=== PATIENT | male | born 1985 | race Caucasian/White ===

== ENCOUNTER 2017-03-08 20:26 | Emergency (ER) | payer MEDICAID ==
[~2017-03-08] VITALS: Ht 182.9 cm; Wt 90.7 kg
--- NOTE | 2017-03-08 20:39 | NUR ---
Pt biba from home for increased sz. Per mother pt has a sz disorder and usually has a few a day but prior to calling 911 pt had several back to back. Pt mentally delayed, nonverbal. Pt at baseline per mother. Resp even and unlabored. No obvious sign of distress at this time. Dr. Francis at bedside. Awaiting further orders.
[2017-03-08 20:49] LABS: BASOPHILS # (AUTO) 0.1 K/uL (0.0-8.0); BASOPHILS % (AUTO) 1.2 % (0.0-2.0); EOSINOPHILS # (AUTO) 0.1 K/uL (0.0-0.7); EOSINOPHILS % (AUTO) 1.3 % (0.0-7.0); HEMATOCRIT 36.8 % (40-50); HEMOGLOBIN 12.6 G/DL (14.0-18.0); LYMPHOCYTES # (AUTO) 2.4 K/UL (0.8-4.8); LYMPHOCYTES % (AUTO) 46.2 % (20.5-51.5); MEAN CORPUSCULAR HEMOGLOBIN 31.2 UUG (27.0-31.0); MEAN CORPUSCULAR HGB CONC 34 g/dL (32.0-37.0); MONOCYTES # (AUTO) 0.5 K/UL (0.1-1.30); MONOCYTES % (AUTO) 8.6 % (0.0-11.0); NEUTROPHILS # (AUTO) 2.4 K/UL (1.8-8.9); NEUTROPHILS % (AUTO) 42.7 % (38.5-71.5); PLATELET COUNT (AUTO) 189 K/UL (150-450); RED BLOOD CELL COUNT(AUTO) 4.04 MIL/UL (4.7-6.1); WHITE BLOOD COUNT (AUTO) 5.5 K/UL (4.0-11.2)
[2017-03-08 20:56] LABS: CARBON DIOXIDE 29 mmol/L (21-32); CHLORIDE 105 mmol/L (98-107); CREATININE 0.6 mg/dL (0.6-1.3); GLUCOSE 118 mg/dL (74-106); POTASSIUM 3.5 mmol/L (3.5-5.1); UREA NITROGEN, BLOOD 12 mg/dL (7-18)
[2017-03-08 21:09] LABS: ALANINE AMINOTRANSFERASE 21 U/L (16-63); ALKALINE PHOSPHATASE 51 U/L (50-136); ASPARTATE AMINOTRANSFERASE 17 U/L (15-37); BILIRUBIN,DIRECT < 0.1 mg/dL (0.0-0.2); BILIRUBIN,TOTAL 0.2 mg/dL (0.2-1.0); TOTAL PROTEIN, SERUM 7.4 g/dL (6.4-8.2)
[2017-03-08] MEDS ORDERED: LAMO200T2 PO (21:11)
[2017-03-08] MEDS ORDERED: CLOB10TA PO (21:11)
[2017-03-08] MEDS ORDERED: CLON0.1T PO (21:11)
[2017-03-08] MEDS ORDERED: PERA12TA PO (21:11)
[2017-03-08] MEDS ORDERED: DIAZ10TA4 PO (21:11)
[2017-03-08] MEDS ORDERED: DIVA500T2 PO ×2 (21:11)
--- NOTE | 2017-03-08 21:28 | NUR ---
Call placed to patient's [facility] Neurologist (Dr. Warren - ), Dr. Milligan (ON-CALL) will be paged.
--- NOTE | 2017-03-08 21:37 | NUR ---
Dr. Francis speaking with [facility] neuro assistant distribution manager for pt's neurologist.
--- NOTE | 2017-03-08 21:50 | NUR ---
[facility] called, awaiting call back
--- NOTE | 2017-03-08 22:34 | NUR ---
[facility] transfer center. Awaiting acceptance and placement.
--- NOTE | 2017-03-08 22:35 | NUR ---
Pt resting in position of comfort for self. No obvious signs of distress at this time. Mother remains at bedside.
--- NOTE | 2017-03-08 23:13 | NUR ---
Report given to SANA Sandoval at [facility]. Pt to be transfered to [facility] room [id number] on . Accepting MD is Dr. Tyson. Will call back SANA Sandoval when transport is arranged.
--- NOTE | 2017-03-09 00:35 | NUR ---
ACLs at bedside. Report given, preparing to transfer pt to [facility]
== END 2017-03-09 00:46 | disposition short-term general hospital (02) ==
LOC: ER 20:26
DX: G40.909 Epilepsy, unspecified, not intractable, without status epilepticus (principal)
CPT/HCPCS: 74022; 80048; 80076; 80164; 82542; 83605; 83880; 84484; 85025; 85730; 93005; 96374; 99285; A4663; J3360; 70030-TC

== ENCOUNTER 2017-09-05 10:29 | Inpatient (IN) | payer MEDICARE, OTHER ==
[~2017-09-05] VITALS: Ht 182.9 cm; Wt 76.2 kg
[~2017-09-05 10:29] MED LIST: CLOB10TA PO; CLON0.1T PO; DIAZ10TA4 PO; DIVA500T2 PO; LAMO200T2 GT; PERA12TA PO
[2017-09-05] MEDS ORDERED: LEVE500T9 GT (10:52)
[2017-09-05] MEDS ORDERED: PANT40TA4 GT (10:52)
[2017-09-05] MEDS ORDERED: LEVO330T2 GT (10:52)
[2017-09-05] MEDS ORDERED: MELA5TAB GT (10:52)
[2017-09-05] MEDS ORDERED: TOPI100T38 GT (10:52)
[2017-09-05] MEDS ORDERED: POTA10TA15 GT (10:52)
[2017-09-05] MEDS ORDERED: DOCU100C36 GT (10:52)
--- NOTE | 2017-09-05 10:52 | NUR ---
EKG DONE, PT'S MOM PRESENT, RECREATION THERAPY TEACHER AT THE BEDSIDE, MONITOR SHOWS NSR, PO2=97% ON ROOMAIR
[2017-09-05 11:00] LABS: BASOPHILS # (AUTO) 0.1 K/uL (0.0-8.0); BASOPHILS % (AUTO) 0.8 % (0.0-2.0); EOSINOPHILS # (AUTO) 0.1 K/uL (0.0-0.7); EOSINOPHILS % (AUTO) 0.9 % (0.0-7.0); HEMATOCRIT 43.5 % (36.7-47.1); HEMOGLOBIN 14.8 g/dL (12.5-16.3); LYMPHOCYTES # (AUTO) 1.7 K/uL (20.0-40.0); LYMPHOCYTES % (AUTO) 28.6 % (20.5-51.5); MEAN CORPUSCULAR HEMOGLOBIN 29.3 uug (23.8-33.4); MEAN CORPUSCULAR HGB CONC 34 g/dL (32.5-36.3); MEAN CORPUSCULAR VOLUME 86.1 fL (73.0-96.2); MONOCYTES # (AUTO) 0.4 K/uL (2.0-10.0); MONOCYTES % (AUTO) 7.1 % (0.0-11.0); NEUTROPHILS # (AUTO) 3.8 K/uL (1.8-8.9); NEUTROPHILS % (AUTO) 62.6 % (38.5-71.5); PLATELET COUNT (AUTO) 270 K/uL (152-348); RED BLOOD CELL COUNT(AUTO) 5.05 MIL/uL (4.06-5.63); WHITE BLOOD COUNT (AUTO) 6.1 K/uL (3.6-10.2)
[2017-09-05] MEDS ORDERED: LORAZEPAM 2 MG/1 ML VIAL ONE ×3 (11:01→12:01)
[2017-09-05] MEDS ORDERED: LORAZEPAM 2 MG/1 ML VIAL IM ONE (11:07)
[2017-09-05 11:09] LABS: CARBON DIOXIDE 24 mmol/L (21-32); CHLORIDE 103 mmol/L (98-107); CREATININE 0.7 mg/dL (0.6-1.3); GLUCOSE 98 mg/dL (74-106); POTASSIUM 3.9 mmol/L (3.5-5.1); UREA NITROGEN, BLOOD 11 mg/dL (7-18)
[2017-09-05] MEDS ORDERED: LORAZEPAM 2 MG/1 ML VIAL IV ONE ×2 (11:13→12:15)
[2017-09-05 11:14] LABS: ALANINE AMINOTRANSFERASE 31 U/L (16-63); ALKALINE PHOSPHATASE 208 U/L (50-136); ASPARTATE AMINOTRANSFERASE 16 U/L (15-37); BILIRUBIN,TOTAL 0.3 mg/dL (0.2-1.0); CREATINE KINASE, TOTAL 46 U/L (39-308); TOTAL PROTEIN, SERUM 8.6 g/dL (6.4-8.2)
[2017-09-05] MEDS ORDERED: LEVETIRACETAM IV 500 MG in IV DEXTROSE 5% 100 ML IV ONE (11:14)
[2017-09-05] MEDS ORDERED: CLON0.3T GT (11:20)
[2017-09-05] MEDS ORDERED: MULT1TAB73 GT (11:20)
[2017-09-05] MEDS ORDERED: ZINC220C8 GT (11:20)
[2017-09-05] MEDS ORDERED: CHOL10002 GT (11:20)
[2017-09-05] MEDS ORDERED: POLY255P2 GT (11:20)
[2017-09-05] MEDS ORDERED: PHEN-563 GT (11:20)
[2017-09-05] MEDS ORDERED: ONDA4TAB5 GT (11:20)
[2017-09-05] MEDS ORDERED: ASCO500C18 GT (11:20)
[2017-09-05] MEDS ORDERED: LEVETIRACETAM 500 MG/5 ML VIAL IV ONE (11:24)
--- NOTE | 2017-09-05 11:43 | NUR ---
LABS DARWN/EKG DONE,MEDS ADMIN, MONITOR SHOWS SINUS TACH AT 103, PO2=97% ON RA. PT'S MOM AT BEDSIDE.
--- NOTE | 2017-09-05 11:55 | NUR ---
ALL ORDERS COMPLETED, PT AWAITING CT SCAN.
--- NOTE | 2017-09-05 12:05 | NUR ---
PT MOVING TO MUCH, PT REC'D ATIVAN, PER MD -HOLD OFF ON THE CT SCAN WHEN PT IS LESS ALTERED.
--- NOTE | 2017-09-05 12:27 | NUR ---
PER DR MILAN PT TO GO TO TELE, HOWEVER FOR PT'S SAFETY-PT IS BETTER AT CCU DUE TO SZ HX. PER GLORIA [id number] TO ELVIN THE NRS PAYROLL PROFESSIONAL AND AT THIS MOMENT NO CCU BEDS AVAIL AND ARE ATTEMPTING TO MOVE OR DOWNGRADE A PT OUT.
[2017-09-05 12:44] LABS: *BILIRUBIN,URIN NEGATIVE (NEGATIVE); *BLOOD, URINE 2+ (NEGATIVE); *CLARITY,URINE CLEAR (CLEAR); *COLOR,URINE YELLOW (YELLOW); *KETONES,URINE NEGATIVE (NEGATIVE); *PROTEIN,URINE NEGATIVE (NEGATIVE); *UROBILINOGEN,URINE 0.2 E.U./dl (NORMAL); LEUKOCYTE ESTERASE ,URINE NEGATIVE (NEGATIVE); NITRITE, URINE NEGATIVE (NEGATIVE); UGLUCOSE NEGATIVE (NEGATIVE)
[2017-09-05 13:02] LABS: BACTERIA,URINE NONE SEEN /HPF (NONE SEEN); RBC,URINE 0-3 /HPF (0-3); SQUAMOUS EPITHELIAL CELL,UR FEW /HPF (NONE SEEN); WBC,URINE 0-3 /HPF (0-3)
--- NOTE | 2017-09-05 13:21 | NUR ---
PER MANISH HOOD -CHARGE PT WAS TO BE JEN HOOD HOWEVER WAS IN BREAK. NOW JEN CAN NOT TAKE REPORT DUE TO CHANGE IN ASSIGNMENT. AWAITING FOR NEXT CHANCE TO TRANSFER THE PT.
[2017-09-05] MEDS ORDERED: MENT71OI TP (13:27)
[2017-09-05] MEDS ORDERED: LACT-47 GT (13:27)
[2017-09-05] MEDS ORDERED: IV NS 1000 ML 1,000 ML IV ONE (14:00)
[2017-09-05] MEDS: IV NS 1000 ML 1,000 ML IV PRN ×2 (14:35→20:06)
--- NOTE | 2017-09-05 14:43 | NUR ---
SBAR REPORT GIVEN TO JEN HOOD EARLIER BY JALIL UMAÑA LVN. PT TRANSPORTED TO [facility] [place]/MONITOR.
--- NOTE | 2017-09-05 14:43 | NUR ---
PT DID NOT HAVE CT SCAN B/C HE WAS MOVING TOO MUCH. MOM DID NOT WANT HIM TO GET MORE ATIVAN AT THIS TIME.
--- NOTE | 2017-09-05 15:00 | NUR ---
Patient in from ER via gurney mother at bedside. vitals signs stable, patient awake, alert does not follow commands, able to mumble some words to his mother. Patient restless and continuously attempting to get out of bed unsupervised. Seizure precautions implemented, with head of bed at 45 degree angle.
--- NOTE | 2017-09-05 15:10 | NUR ---
Pt's mother Radha at bedside and verbalizing the need to have a one to one sitter, as stated by her pt. with history of falls as inpatient during past recent hospitalization at [facility]". Patient remains restless and attempting to get out bed all the time.
--- NOTE | 2017-09-05 15:15 | NUR ---
Dr. Jack called to be notified of new admission and also to be informed of the need of 1:1 sitter for patient safety, orders for 1:1 received, by both credit charge authorizerViraj and me. Vaccinator notified. of the need to 1:1 sitter.
[2017-09-05 15:16] VITALS: BP 112/88
--- NOTE | 2017-09-05 19:20 | NUR ---
Received patient sleeping comfortably. Sitter at bedside. Seizure and fall precaution maintained. Continue plan of care.
[2017-09-05] MEDS ORDERED: Medication Not On Formulary EA (Melatonin 10 MG) GT SCH (19:45)
[2017-09-05] MEDS ORDERED: PHENOBARBITAL GT SCH (19:45)
[2017-09-05] MEDS ORDERED: ACETAMINOPHEN 650 MG SUPP.RECT RC PRN (19:45)
[2017-09-05] MEDS ORDERED: DOCUSATE SODIUM 100 MG CAPSULE PO SCH (19:45)
[2017-09-05] MEDS ORDERED: ONDANSETRON HCL 4 MG TABLET GT PRN (19:45)
[2017-09-05] MEDS ORDERED: Z GUARD REMEDY PASTE 57 GM TUBE TP PRN (19:45)
[2017-09-05 20:00] VITALS: BP 124/72
[2017-09-05] MEDS: COMPLEAT MODIFIED FORMULA 1000 ML LIQUID GT SCH (21:00)
[2017-09-05] MEDS ORDERED: LEVETIRACETAM 500 MG TABLET GT SCH (21:00)
[2017-09-05] MEDS: TOPIRAMATE 100 MG TABLET GT SCH (21:24)
[2017-09-05] MEDS: PHENOBARBITAL 60 MG TABLET GT SCH (21:24)
[2017-09-05] MEDS: LEVETIRACETAM 500 MG/5 ML LIQUID UDC GT SCH (21:24)
[2017-09-05] MEDS: DOCUSATE SODIUM 100 MG/10 ML LIQUID UDC GT SCH (21:25)
[2017-09-05] MEDS: CLONIDINE HCL 0.3 MG TABLET GT SCH (21:26)
[2017-09-05] MEDS: MELATONIN 3 MG TABLET GT SCH (21:32)
[2017-09-05] MEDS ORDERED: METOCLOPRAMIDE HCL 10 MG/2 ML VIAL IV PRN (22:15)
--- NOTE | 2017-09-05 22:28 | NUR ---
Compleat feeding is not available/we don't carry per tube room supervisor. No substitute available. Informed Dr. Hanson about this and he said that Taping Foreman will substitute in Am. Charge nurse aware.
[2017-09-05] MEDS ORDERED: POTASSIUM CHLORIDE 20 MEQ POWDER PACKET ONE (23:16)
[2017-09-05] MEDS: POTASSIUM CHLORIDE 20 MEQ POWDER PACKET GT SCH (23:25)
[2017-09-06 00:03] VITALS: BP 92/56
[2017-09-06] MEDS: IV NS 1000 ML 1,000 ML IV PRN ×2 (04:08→14:30)
[2017-09-06 04:38] VITALS: BP 107/75
--- NOTE | 2017-09-06 05:52 | NUR ---
Slept good. Sitter remain at bedside. No seizure activities reported. Seizure/ fall precaution maintained. Gt clamped. Awaiting dental sales representative order for feeding substitute. All needs attended and met. No significant event reported.
[2017-09-06 06:56] LABS: BASOPHILS # (AUTO) 0.1 K/uL (0.0-8.0); BASOPHILS % (AUTO) 0.8 % (0.0-2.0); EOSINOPHILS # (AUTO) 0.1 K/uL (0.0-0.7); HEMATOCRIT 39.6 % (36.7-47.1); HEMOGLOBIN 13.3 g/dL (12.5-16.3); LYMPHOCYTES # (AUTO) 2.2 K/uL (20.0-40.0); LYMPHOCYTES % (AUTO) 27.3 % (20.5-51.5); MEAN CORPUSCULAR HEMOGLOBIN 29.1 uug (23.8-33.4); MEAN CORPUSCULAR HGB CONC 34 g/dL (32.5-36.3); MEAN CORPUSCULAR VOLUME 86.4 fL (73.0-96.2); MONOCYTES # (AUTO) 0.6 K/uL (2.0-10.0); MONOCYTES % (AUTO) 7.3 % (0.0-11.0); NEUTROPHILS # (AUTO) 5.2 K/uL (1.8-8.9); NEUTROPHILS % (AUTO) 63.6 % (38.5-71.5); PLATELET COUNT (AUTO) 234 K/uL (152-348); RED BLOOD CELL COUNT(AUTO) 4.59 MIL/uL (4.06-5.63)
[2017-09-06 07:02] LABS: ALANINE AMINOTRANSFERASE 27 U/L (16-63); ALKALINE PHOSPHATASE 179 U/L (50-136); ASPARTATE AMINOTRANSFERASE 19 U/L (15-37); BILIRUBIN,TOTAL 0.3 mg/dL (0.2-1.0); CARBON DIOXIDE 23 mmol/L (21-32); CHLORIDE 108 mmol/L (98-107); CHOLESTEROL 207 mg/dL (<200); CREATININE 0.5 mg/dL (0.6-1.3); GLUCOSE 92 mg/dL (74-106); HDL CHOLESTEROL 43 mg/dL (40-60); MAGNESIUM 1.7 mg/dL (1.8-2.4); PHOSPHOROUS 4.4 mg/dL (2.5-4.9); POTASSIUM 3.5 mmol/L (3.5-5.1); TRIGLYCERIDES 176 MG/DL (30-150); UREA NITROGEN, BLOOD 10 mg/dL (7-18)
[2017-09-06 07:03] LABS: THYROID STIMULATING HORMONE 2.312 mIU/mL (0.358-3.740)
[2017-09-06 07:11] LABS: WHITE BLOOD COUNT (AUTO) 8.2 K/uL (3.6-10.2)
--- NOTE | 2017-09-06 07:30 | NUR ---
Rec'd pt in bed asleep. No s/s of distress noted. On RA. NS running at 125ml/hr via LFA 20g IV. Bilateral half side rails up with padding to prevent injury secondary to seizure disorder. No seizure episode during noc shift per report. 1:1 sitter at bedside. Will continue to monitor for change.
[2017-09-06 08:00] VITALS: BP 102/78
[2017-09-06] MEDS: LEVETIRACETAM 500 MG/5 ML LIQUID UDC GT SCH ×2 (08:55→20:27)
[2017-09-06] MEDS: ZINC SULFATE 220 MG CAPSULE GT SCH (08:55)
[2017-09-06] MEDS: PHENOBARBITAL 60 MG TABLET GT SCH ×2 (08:55→20:25)
[2017-09-06] MEDS: DOCUSATE SODIUM 100 MG/10 ML LIQUID UDC GT SCH ×2 (08:55→20:27)
[2017-09-06] MEDS: CHOLECALCIFEROL 1,000 UNIT TABLET GT SCH (08:55)
[2017-09-06] MEDS: POTASSIUM CHLORIDE 20 MEQ POWDER PACKET GT SCH ×2 (08:55→16:42)
[2017-09-06] MEDS: LAMOTRIGINE 100 MG TABLET GT SCH (08:57)
[2017-09-06] MEDS: MULTIVITAMINS,THERAPEUTIC TABLET GT SCH (08:57)
[2017-09-06] MEDS: ASCORBIC ACID 500 MG TABLET GT SCH (08:57)
[2017-09-06] MEDS: PANTOPRAZOLE ORAL SUSPENSION 40 MG SUSPDR.PKT GT SCH (08:58)
[2017-09-06] MEDS: LEVOCARNITINE 330 MG TABLET GT SCH ×3 (08:59→16:43)
[2017-09-06] MEDS ORDERED: Medication Not On Formulary EA (Ascorbic Acid (Vitamin C) 500 MG) GT SCH (09:00)
[2017-09-06] MEDS: COMPLEAT MODIFIED FORMULA 1000 ML LIQUID GT SCH ×2 (09:00→13:00)
[2017-09-06] MEDS ORDERED: Medication Not On Formulary EA (Multivitamins (Multivitamin) 1 TAB) GT SCH (09:00)
[2017-09-06] MEDS ORDERED: LAMOTRIGINE 200 MG TABLET GT SCH (09:00)
[2017-09-06] MEDS ORDERED: POLYETHYLENE GLYCOL 3350 238 GM POWDER GT SCH (09:00)
--- NOTE | 2017-09-06 09:00 | NUR ---
Placed dietary evaluation order for equivalent tube feeding and caloric intake needed by patient via gtube.
--- NOTE | 2017-09-06 10:36 | NUR ---
Received order from Dr Adams for CT Head w/o contrast. Noted and carried out. Mother at bedside and made aware.
[2017-09-06] MEDS ORDERED: METOCLOPRAMIDE HCL 10 MG/10 ML UDC GT PRN (10:45)
--- NOTE | 2017-09-06 11:00 | NUR ---
Pt left for CT Head w/o contrast via hospital bed. Accompanied by radiology staff, mother, and 1:1 sitter. Pt in stable condition. Denies pain.
--- NOTE | 2017-09-06 11:28 | NUR ---
Pt back from CT. No acute distress noted. Back on tele, sinus rhythm.
[2017-09-06] MEDS: MIRALAX 17 GM POWD.PACK PO SCH ×2 (11:47→16:42)
[2017-09-06] MEDS: LORAZEPAM 2 MG/1 ML VIAL IV PRN ×2 (12:11→15:42)
[2017-09-06 12:41] VITALS: BP 123/88
--- NOTE | 2017-09-06 13:15 | NUR ---
Pt with new order for transfer to Med Surg. Mother at bedside and made aware. Pt with no seizure episode noted. Will endorse to Med Surg staff.
--- NOTE | 2017-09-06 14:00 | NUR ---
FIBERSOURCE G-TUBE FEEDING INITIATED: FIBERSOURCE ORDER: START 10 ML/HR, INCREASE 10 ML EVERY 4 HOURS. MAXIMUM RATE 75 ML/HR X 22 HOURS.
--- NOTE | 2017-09-06 14:06 | NUR ---
NON-ADMINISTRATION: G-TUBE FEEDING, COMPLEAT NOT AVAILABLE IN HOSPITAL. NEW ORDER FOR FEEDING SOURCE HAS ALREADY BEEN PLACED. WILL FOLLOW ORDERS.
[2017-09-06] MEDS: FIBERSOURCE HN 1000ML LIQUID GT PRN (14:25)
[2017-09-06 16:00] VITALS: BP 124/84
[2017-09-06] MEDS: MAGNESIUM SULFATE/D5W 100 ML IV SCH ×2 (16:42→17:46)
[2017-09-06] MEDS: CLONIDINE HCL 0.3 MG TABLET GT SCH (17:00)
--- NOTE | 2017-09-06 18:45 | NUR ---
G-TUBE FEEDING INCREASED TO 20 ML/HR.
--- NOTE | 2017-09-06 18:48 | NUR ---
PATIENT TOLERATING TUBE FEEDING.
--- NOTE | 2017-09-06 18:49 | NUR ---
PATIENT RESTING COMFORTABLY IN BED AT THIS TIME. STABLE CONDITION, NO S/S OF DISTRESS, VITAL SIGNS STABLE. IVF RUNNING. 2 BAGS OF MAGNESIUM ADMINISTERED TO PATIENT. TUBE FEEDING RUNNING, PT TOLERATING WELL. 1:1 SITTER AT BEDSIDE FOR SAFETY. BED ALARM ON.
[2017-09-06 19:30] VITALS: BP 116/78
--- NOTE | 2017-09-06 19:30 | NUR ---
PT IN ROOM SUPINE IN NO ACUTE DISTRESS. NO INCREASED CONFUSION OR AGITATION NOTED. TUBE FEEDING PRESENT AT 20CC/HR VIA FIBER SOURCE. NO EPISODES OF SEIZURES NOTED AT THIS TIME. F/C IN PLACE AND IV NS MAINTAINING NS AT 125CC/HR. V/S ARE WNL. CG AT BEDSIDE. 3 SIDE RAILS RAISED. CONTINUE TO MONITOR.
[2017-09-06] MEDS: TOPIRAMATE 100 MG TABLET GT SCH (20:26)
[2017-09-06] MEDS: MELATONIN 3 MG TABLET GT SCH (20:27)
--- NOTE | 2017-09-07 01:00 | NUR ---
PT ASLEEP AT THIS TIME WITHOUT ANY EPISODES OF SEIZURES. REMAINS IN BED WITH CONTINUOUS IV FLUID NS AT 125ML/HR. NO ACUTE DISTRESS NOTED. SITTER AT BEDSIDE. CONTINUE TO MONITOR. TUBE FEEDING NOTED 30CC/HR CONTINUOUS.
[2017-09-07] MEDS: IV NS 1000 ML 1,000 ML IV PRN ×3 (01:08→21:31)
[2017-09-07 05:30] VITALS: BP 98/70
--- NOTE | 2017-09-07 05:45 | NUR ---
PT ALERT AWAKE IN NO ACUTE DISTRESS. NO EPISODES OF SEIZURES OVERNIGHT. ABLE TO SLEEP UP TO 6 HRS WITHOUT DIFFICULTY. TUBE FEEDING NOW AT 40ML/HR. ABLE TO TOLERATE INCLUDING IV NS FLUIDS. SITTER AT BEDSIDE. CONTINUE TO MONITOR. SIDE RAILS MAINTAINED PADDED.
[2017-09-07 06:19] LABS: CARBON DIOXIDE 22 mmol/L (21-32); CHLORIDE 107 mmol/L (98-107); CREATININE 0.5 mg/dL (0.6-1.3); GLUCOSE 92 mg/dL (74-106); MAGNESIUM 1.7 mg/dL (1.8-2.4); POTASSIUM 3.3 mmol/L (3.5-5.1); UREA NITROGEN, BLOOD 6 mg/dL (7-18)
--- NOTE | 2017-09-07 07:00 | NUR ---
RECEIVED PATIENT ON BED, A AND O TO SELF, PREFERS TO BE CALLED FANNY. SEIZURE PRECAUTIONS OBSERVED AT ALL TIMES. NO ACUTE DISTRESS NOTED. NO SEIZURE EPISODES PER BATCH OR CONTINUOUS STILL OPERATOR. IV ACCESS ON LEFT FOREARM #20, RUNNING NS AT 125CC/HR, INFUSING WELL.GTUBE INTACT AND PATENT RUNNING FIBERSOURCE AT 50CC/HR TO INCREASE WITH 10CC EVERY 4 HRS UNTIL 75 CC/HR GOAL IS ACHIEVED. NO COMPLAINTS OF PAIN AND DISCOMFORT AT THIS TIME. COMFORT MEASURES PROVIDED. 1:1 SITTER AT BEDSIDE. WILL CONT TO MONITOR CLOSELY.
[2017-09-07 08:30] VITALS: BP 102/72
[2017-09-07] MEDS: LEVOCARNITINE 330 MG TABLET GT SCH ×3 (09:49→17:21)
[2017-09-07] MEDS: DOCUSATE SODIUM 100 MG/10 ML LIQUID UDC GT SCH ×2 (09:49→21:05)
[2017-09-07] MEDS: PHENOBARBITAL 60 MG TABLET GT SCH ×2 (09:50→21:05)
[2017-09-07] MEDS: LAMOTRIGINE 100 MG TABLET GT SCH (09:50)
[2017-09-07] MEDS: PANTOPRAZOLE ORAL SUSPENSION 40 MG SUSPDR.PKT GT SCH (09:50)
[2017-09-07] MEDS: POTASSIUM CHLORIDE 20 MEQ POWDER PACKET GT SCH ×2 (09:50→17:21)
[2017-09-07] MEDS: ZINC SULFATE 220 MG CAPSULE GT SCH (09:51)
[2017-09-07] MEDS: MULTIVITAMINS,THERAPEUTIC TABLET GT SCH (09:51)
[2017-09-07] MEDS: ASCORBIC ACID 500 MG TABLET GT SCH (09:51)
[2017-09-07] MEDS: MIRALAX 17 GM POWD.PACK PO SCH ×2 (09:57→17:21)
[2017-09-07] MEDS: LEVETIRACETAM 500 MG/5 ML LIQUID UDC GT SCH ×2 (09:57→21:05)
[2017-09-07] MEDS: CHOLECALCIFEROL 1,000 UNIT TABLET GT SCH (10:00)
[2017-09-07 12:02] VITALS: BP_SYST 106; BP_SYST 16; BP_DIAS 69
[2017-09-07] MEDS ORDERED: POTASSIUM CHLORIDE 20 MEQ POWDER PACKET GT ONE (14:00)
[2017-09-07] MEDS: MAGNESIUM SULFATE/D5W 100 ML IV SCH ×2 (14:21→15:57)
[2017-09-07 16:05] VITALS: BP 122/78
[2017-09-07] MEDS: CLONIDINE HCL 0.3 MG TABLET GT SCH (17:20)
--- NOTE | 2017-09-07 18:00 | NUR ---
noted IV on the left forearm #20 leaking. reinserted on the left wrist #20, well tolerated. intact and patent, resumed IV fluids.
--- NOTE | 2017-09-07 19:30 | NUR ---
PT ALERT AWAKE IN NO ACUTE DISTRESS. TUBE FEEDING INCREASED TO 75CC/HR. MAINTAINING IV HYDRATION. SITTER AT BEDSIDE. BP 100/70. CONTINUE TO MONITOR.
[2017-09-07 20:12] VITALS: BP 100/70
[2017-09-07] MEDS: TOPIRAMATE 100 MG TABLET GT SCH (21:04)
[2017-09-07] MEDS: MELATONIN 3 MG TABLET GT SCH (21:05)
[2017-09-07] MEDS: FIBERSOURCE HN 1000ML LIQUID GT PRN (21:32)
[2017-09-08 04:00] VITALS: BP 120/86
[2017-09-08] MEDS: LORAZEPAM 2 MG/1 ML VIAL IV PRN (04:59)
--- NOTE | 2017-09-08 05:49 | NUR ---
PT IN ROOM ASLEEP FOR 6 HRS THROUGHOUT THE NIGHT. ATIVAN GIVEN D/T INSOMNIA WITH ANXIETY. TUBE FEEDING CONTINUOUS AT 75CC/HR. NO EPISODES OF SEIZURES NOTED. ABLE TO RECEIVE ROUTINE MEDICATIONS WITHOUT DIFFICULTY. F/C INTACT AND NOTED WITH ONE BM OVERNIGHT. V/S ARE WNL. CONTINUE TO MONITOR. SITTER AT BEDSIDE. BED ALARM ON.
[2017-09-08 06:11] LABS: CARBON DIOXIDE 22 mmol/L (21-32); CHLORIDE 106 mmol/L (98-107); CREATININE 0.5 mg/dL (0.6-1.3); GLUCOSE 118 mg/dL (74-106); MAGNESIUM 1.5 mg/dL (1.8-2.4); POTASSIUM 3.2 mmol/L (3.5-5.1); UREA NITROGEN, BLOOD 7 mg/dL (7-18)
[2017-09-08] MEDS: LEVOCARNITINE 330 MG TABLET GT SCH ×3 (08:00→17:21)
[2017-09-08] MEDS: DOCUSATE SODIUM 100 MG/10 ML LIQUID UDC GT SCH ×2 (08:00→21:19)
[2017-09-08] MEDS: CHOLECALCIFEROL 1,000 UNIT TABLET GT SCH (08:00)
[2017-09-08] MEDS: PHENOBARBITAL 60 MG TABLET GT SCH ×2 (08:00→21:23)
[2017-09-08] MEDS: PANTOPRAZOLE ORAL SUSPENSION 40 MG SUSPDR.PKT GT SCH (08:01)
[2017-09-08] MEDS: LAMOTRIGINE 100 MG TABLET GT SCH (08:01)
[2017-09-08] MEDS: POTASSIUM CHLORIDE 20 MEQ POWDER PACKET GT SCH ×2 (08:01→17:19)
[2017-09-08] MEDS: MULTIVITAMINS,THERAPEUTIC TABLET GT SCH (08:01)
[2017-09-08] MEDS: ZINC SULFATE 220 MG CAPSULE GT SCH (08:01)
[2017-09-08] MEDS: ASCORBIC ACID 500 MG TABLET GT SCH (08:02)
[2017-09-08] MEDS: MIRALAX 17 GM POWD.PACK PO SCH ×2 (08:04→17:21)
[2017-09-08] MEDS: LEVETIRACETAM 500 MG/5 ML LIQUID UDC GT SCH ×2 (08:13→21:19)
[2017-09-08] MEDS: IV NS 1000 ML 1,000 ML IV PRN ×2 (11:04→23:14)
[2017-09-08 11:05] VITALS: BP 109/72
[2017-09-08] MEDS: FIBERSOURCE HN 1000ML LIQUID GT PRN (12:39)
[2017-09-08] MEDS ORDERED: POTASSIUM CHLORIDE 20 MEQ POWDER PACKET GT ONE (14:15)
[2017-09-08 15:00] VITALS: BP 110/78
[2017-09-08] MEDS: MAGNESIUM SULFATE/D5W 100 ML IV SCH ×2 (15:52→17:19)
[2017-09-08] MEDS: CLONIDINE HCL 0.3 MG TABLET GT SCH (17:27)
--- NOTE | 2017-09-08 18:00 | NUR ---
Patient awake resting in bed, seizure precaution in place, no seizure activity noted at this time. GT site patent/intact/clean, flushed per protocol, dressing changed as needed. Bowel sounds present, no residual noted. HOB elevated at all times, no nausea/vomiting/diarrhea. Santoro cath intact/patent, draining yellow urine. IVF infusing no infiltration noted. 1:1 sitter provided for safety, bed alarm on. Mother/family at bedside.
--- NOTE | 2017-09-08 20:00 | NUR ---
Pt noted to be alert and awake with sitter at bedside. No distress noted at this time. GT feeding running at 75 cc/hr. Bed rails padded and in low, locked position. Bed alarm on. Call light within reach. Will continue to monitor.
[2017-09-08] MEDS: TOPIRAMATE 100 MG TABLET GT SCH (21:19)
[2017-09-08] MEDS: MELATONIN 3 MG TABLET GT SCH (21:19)
[2017-09-09 06:52] LABS: CARBON DIOXIDE 23 mmol/L (21-32); CHLORIDE 107 mmol/L (98-107); CREATININE 0.5 mg/dL (0.6-1.3); GLUCOSE 98 mg/dL (74-106); MAGNESIUM 1.8 mg/dL (1.8-2.4); POTASSIUM 3.9 mmol/L (3.5-5.1); UREA NITROGEN, BLOOD 8 mg/dL (7-18)
--- NOTE | 2017-09-09 06:55 | NUR ---
Pt slept comfortably throughout the night. No s/s of seizures/distress noted throughout the shift. GT feeding tolerated, flushed and ensured patent with no residual noted. 1:1 Sitter remains at bedside for safety. Bed in low, locked position. Bed rails padded. Call light within reach.
[2017-09-09] MEDS: FIBERSOURCE HN 1000ML LIQUID GT PRN (08:17)
[2017-09-09] MEDS: ASCORBIC ACID 500 MG TABLET GT SCH (08:23)
[2017-09-09] MEDS: ZINC SULFATE 220 MG CAPSULE GT SCH (08:23)
[2017-09-09] MEDS: PHENOBARBITAL 60 MG TABLET GT SCH (08:23)
[2017-09-09] MEDS: LAMOTRIGINE 100 MG TABLET GT SCH (08:23)
[2017-09-09] MEDS: PANTOPRAZOLE ORAL SUSPENSION 40 MG SUSPDR.PKT GT SCH (08:23)
[2017-09-09] MEDS: CHOLECALCIFEROL 1,000 UNIT TABLET GT SCH (08:23)
[2017-09-09] MEDS: DOCUSATE SODIUM 100 MG/10 ML LIQUID UDC GT SCH (08:24)
[2017-09-09] MEDS: POTASSIUM CHLORIDE 20 MEQ POWDER PACKET GT SCH (08:24)
[2017-09-09] MEDS: MULTIVITAMINS,THERAPEUTIC TABLET GT SCH (08:24)
[2017-09-09] MEDS: LEVETIRACETAM 500 MG/5 ML LIQUID UDC GT SCH (08:25)
[2017-09-09] MEDS: MIRALAX 17 GM POWD.PACK PO SCH (08:25)
[2017-09-09] MEDS: LEVOCARNITINE 330 MG TABLET GT SCH ×2 (08:27→13:08)
[2017-09-09] MEDS: IV NS 1000 ML 1,000 ML IV PRN (08:52)
[2017-09-09 11:03] VITALS: BP 118/77
[2017-09-09 14:52] VITALS: BP 117/75
--- NOTE | 2017-09-09 15:35 | NUR ---
PT D/C HOME WITH MOTHER PER PRIVATE VEHICLE. PT D/C WITH EXIT-CARE PACKET, ALL BELONGINGS, AND VALUABLES. PT STABLE TO TRANSPORT. ID BAND, GUTIERREZ CATHETER, AND IV SITE REMOVED. PACKET GIVEN TO MOTHER. PT WILL RECEIVE [facility] TO COME AND CARE FOR PT.
[2017-09-09 15:58] VITALS: BP 118/77
== END 2017-09-09 15:30 | disposition home or self-care (01) | DRG 53 ==
LOC: ER 10:29 → DOU 14:37 → TELE-TD 15:10 → MED 09-06 14:34
PROVIDERS: ADMIT Internal Medicine; ATTEND Internal Medicine
DX: G40.814 Lennox-Gastaut syndrome, intractable, without status epilepticus (principal); Z93.1 Gastrostomy status; F84.9 Pervasive developmental disorder, unspecified; F81.81 Disorder of written expression; F41.9 Anxiety disorder, unspecified; Z79.899 Other long term (current) drug therapy; R74.0 Nonspecific elevation of levels of transaminase and lactic acid dehydrogenase [LDH]
CPT/HCPCS: 36415; 70030-TC; 70450; 71045; 80184; 83605; 83735; 84100; 84443; 85025; 92526; 92610; 93005; A4663; J1953; J2060; J3475; J7030; J7060; J8499

== ENCOUNTER 2018-01-30 15:15 | Inpatient (IN) | payer MEDICARE, OTHER ==
[~2018-01-30] VITALS: Ht 182.9 cm; Wt 76.4 kg
[~2018-01-30 15:15] MED LIST changes: +ASCO500C18 GT; +CHOL10002 GT; -CLOB10TA PO; -CLON0.1T PO; +CLON0.3T GT; -DIAZ10TA4 PO; -DIVA500T2 PO; +DOCU100C36 GT; +LACT-47 GT; +LEVE500T9 GT; +LEVO330T2 GT; +MELA5TAB GT; +MENT71OI TP; +MULT1TAB73 GT; +ONDA4TAB5 GT; -PERA12TA PO; +PHEN-563 GT; +POLY255P2 GT; +POTA10TA15 GT; +TOPI100T38 GT; +ZINC220C8 GT
[2018-01-30 16:48] LABS: BASOPHILS # (AUTO) 0.1 K/uL (0.0-8.0); EOSINOPHILS # (AUTO) 0.3 K/uL (0.0-0.7); EOSINOPHILS % (AUTO) 4.6 % (0.0-7.0); HEMATOCRIT 36.8 % (36.7-47.1); HEMOGLOBIN 12.7 g/dL (12.5-16.3); LYMPHOCYTES # (AUTO) 1.8 K/uL (20.0-40.0); LYMPHOCYTES % (AUTO) 26.6 % (20.5-51.5); MEAN CORPUSCULAR HEMOGLOBIN 31.8 uug (23.8-33.4); MEAN CORPUSCULAR HGB CONC 35 g/dL (32.5-36.3); MEAN CORPUSCULAR VOLUME 92.2 fL (73.0-96.2); MONOCYTES # (AUTO) 0.5 K/uL (2.0-10.0); MONOCYTES % (AUTO) 7.1 % (0.0-11.0); NEUTROPHILS # (AUTO) 4.2 K/uL (1.8-8.9); NEUTROPHILS % (AUTO) 60.7 % (38.5-71.5); PLATELET COUNT (AUTO) 194 K/uL (152-348); RED BLOOD CELL COUNT(AUTO) 3.99 MIL/uL (4.06-5.63); WHITE BLOOD COUNT (AUTO) 6.9 K/uL (3.6-10.2)
[2018-01-30 16:58] LABS: CARBON DIOXIDE 24 mmol/L (21-32); CHLORIDE 106 mmol/L (98-107); CREATININE 0.5 mg/dL (0.6-1.3); GLUCOSE 111 mg/dL (74-106); POTASSIUM 3.8 mmol/L (3.5-5.1); UREA NITROGEN, BLOOD 14 mg/dL (7-18)
[2018-01-30 17:13] LABS: ALANINE AMINOTRANSFERASE 35 U/L (16-63); ALKALINE PHOSPHATASE 162 U/L (50-136); ASPARTATE AMINOTRANSFERASE 19 U/L (15-37); BILIRUBIN,DIRECT 0.1 mg/dL (0.0-0.2); BILIRUBIN,TOTAL 0.3 mg/dL (0.2-1.0); TOTAL PROTEIN, SERUM 7.2 g/dL (6.4-8.2)
[2018-01-30 17:17] LABS: PHENOBARBITAL 61.3 ug/mL (15.0-39.0)
[2018-01-30] MEDS ORDERED: NAPR220C15 PO (18:14)
[2018-01-30] MEDS ORDERED: ZINC220C8 PO (18:14)
[2018-01-30] MEDS ORDERED: PHEN20EL5 PO (18:14)
[2018-01-30] MEDS ORDERED: POTA20LI4 PO (18:14)
[2018-01-30] MEDS ORDERED: CLON0.3T PO (18:14)
[2018-01-30] MEDS ORDERED: LEVO330T PO (18:14)
[2018-01-30] MEDS ORDERED: MAGN296S PO (18:14)
[2018-01-30] MEDS ORDERED: MELA3TAB PO (18:14)
[2018-01-30] MEDS ORDERED: CHOL100062 PO (18:14)
[2018-01-30] MEDS ORDERED: TOPI200T PO (18:14)
[2018-01-30] MEDS ORDERED: MULT1TAB73 PO (18:14)
[2018-01-30] MEDS ORDERED: LEVE500T20 PO (18:14)
[2018-01-30] MEDS ORDERED: LAMO100T PO ×2 (18:14)
[2018-01-30] MEDS ORDERED: POLY17PO4 PO (18:14)
[2018-01-30] MEDS ORDERED: DOCU100T2 PO (18:14)
[2018-01-30] MEDS ORDERED: PANT40SU2 PO (18:14)
[2018-01-30] MEDS ORDERED: ACET-73 PO (18:14)
--- NOTE | 2018-01-30 18:28 | NUR ---
BHARATI AGUILAR SPOKE TO DR CRUZ (ORTHO CONSULT).
--- NOTE | 2018-01-30 18:29 | NUR ---
BHARATI AGUILAR TALKED TO DR. CRUZ FOR ORTHO CONSULT.
--- NOTE | 2018-01-30 18:30 | NUR ---
PT ADMISSION TO HOSPITAL CANCELLED, PT NEEDS TO BE TRANSFERED.
--- NOTE | 2018-01-30 19:23 | NUR ---
HANDS OFF REPORT GIVEN TO JUAN HOOD
--- NOTE | 2018-01-30 19:42 | NUR ---
PT IN BED. PT IS POSITIONED FOR COMFORT. PT'S VISITORS AT BEDSIDE. NO SIGNS OF DISTRESS WITNESSED AT THIS TIME.
--- NOTE | 2018-01-30 20:20 | NUR ---
REPORT GIVEN TO MEDSUR NURSEJAVON
--- NOTE | 2018-01-30 21:04 | NUR ---
Pt. admitted to [facility], under care of Dr. ORTEGA Belongs List completed
--- NOTE | 2018-01-30 21:15 | NUR ---
Received patient from ER via gurney. Family and caregiver is at bedside. Patient is A/O to self. No acute distress noted. There is evidence of cognitive deficit. Hx was provided by mom. Head to toe assessment done. Noted multiple old scar (head and abdomen) from a fall a few years back from a 3 story balcony. Patient is a max assist patient who uses the wheelchair to get around. Vital signs taken, stable. Safety initiated. Call light within reach. Will continue to monitor.
[2018-01-30] MEDS ORDERED: ONDANSETRON 4 MG/2 ML VIAL IV PRN (21:30)
[2018-01-30] MEDS ORDERED: HYDROCODONE/APAP 5-325MG TABLET PO PRN (21:30)
[2018-01-30] MEDS ORDERED: MAGNESIUM CITRATE 296 ML BOTTLE PO PRN (21:30)
[2018-01-30] MEDS ORDERED: MELATONIN 3 MG TABLET PO PRN (21:30)
[2018-01-30] MEDS ORDERED: ZOLPIDEM 5 MG TABLET PO PRN (21:30)
[2018-01-30] MEDS ORDERED: MORPHINE SULFATE 2 MG/1 ML DISP.SYRIN IV PRN (21:30)
[2018-01-30] MEDS ORDERED: MAGNESIUM HYDROXIDE 30 ML LIQUID UDC PO PRN (21:30)
[2018-01-30] MEDS ORDERED: Z GUARD REMEDY PASTE 57 GM TUBE TOP PRN (21:30)
[2018-01-30 21:46] VITALS: BP 112/82
[2018-01-30] MEDS ORDERED: NAPROXEN 250 MG TABLET PO PRN (22:00)
[2018-01-30] MEDS ORDERED: IV NS 1000 ML 1,000 ML IV PRN (22:30)
[2018-01-31 00:22] VITALS: BP 107/80
--- NOTE | 2018-01-31 01:40 | NUR ---
Patient still awake, patient in pain as evidence by facial grimacing, guarding, restlessness and moaning. Morphine given. Will continue to monitor.
[2018-01-31 05:20] VITALS: BP 106/72
--- NOTE | 2018-01-31 05:52 | NUR ---
Patient slept intermittently t/o shift. front desk worker at bedside. No acute distress noted. IVF infusing on the right hand, patent and intact. Vitals signs stable. Safety and comfort measures maintained t/o shift. All meds given as ordered. All needs met.
[2018-01-31 06:29] LABS: ALANINE AMINOTRANSFERASE 32 U/L (16-63); ALKALINE PHOSPHATASE 162 U/L (50-136); ASPARTATE AMINOTRANSFERASE 19 U/L (15-37); BILIRUBIN,TOTAL 0.3 mg/dL (0.2-1.0); CARBON DIOXIDE 27 mmol/L (21-32); CHLORIDE 104 mmol/L (98-107); CHOLESTEROL 211 mg/dL (<200); CREATININE 0.4 mg/dL (0.6-1.3); GLUCOSE 81 mg/dL (74-106); HDL CHOLESTEROL 54 mg/dL (40-60); MAGNESIUM 1.6 mg/dL (1.8-2.4); PHOSPHOROUS 3.4 mg/dL (2.5-4.9); POTASSIUM 3.9 mmol/L (3.5-5.1); TOTAL PROTEIN, SERUM 7.1 g/dL (6.4-8.2); TRIGLYCERIDES 138 MG/DL (30-150); UREA NITROGEN, BLOOD 12 mg/dL (7-18)
[2018-01-31] MEDS: PANTOPRAZOLE SODIUM 40 MG TABLET.DR PO SCH (07:15)
[2018-01-31] MEDS ORDERED: MAGNESIUM CITRATE 296 ML BOTTLE PO PRN (07:15)
[2018-01-31] MEDS ORDERED: ZOLPIDEM 5 MG TABLET PO PRN (07:30)
--- NOTE | 2018-01-31 07:30 | NUR ---
Awake, moderate high back rest. IVF infusing. NPO instructed and maintained. Caregiver at bedside
[2018-01-31] MEDS ORDERED: MORPHINE SULFATE 4 MG/1 ML DISP.SYRIN IV PRN (08:45)
[2018-01-31] MEDS: ASCORBIC ACID 500 MG TABLET PO SCH ×2 (09:00→16:36)
[2018-01-31] MEDS: MIRALAX 17 GM POWD.PACK PO SCH ×2 (09:00→16:37)
[2018-01-31] MEDS: LEVOCARNITINE 330 MG TABLET PO SCH ×3 (09:00→16:32)
[2018-01-31] MEDS ORDERED: Medication Not On Formulary EA (Multivitamins (Multivitamin) 1 TAB) GT SCH (09:00)
[2018-01-31] MEDS ORDERED: LEVETIRACETAM 500 MG TABLET GT SCH (09:00)
[2018-01-31] MEDS: DOCUSATE SODIUM 100 MG CAPSULE PO SCH ×2 (09:00→16:32)
[2018-01-31] MEDS ORDERED: PHENOBARBITAL 30 MG/7.5 ML LIQUID UDC PO SCH (09:00)
[2018-01-31] MEDS ORDERED: Medication Not On Formulary EA (Docusate Sodium 100 MG) PO SCH (09:00)
[2018-01-31] MEDS ORDERED: PHENOBARBITAL GT SCH (09:00)
[2018-01-31] MEDS ORDERED: PANTOPRAZOLE ORAL SUSPENSION 40 MG SUSPDR.PKT PO SCH (09:00)
[2018-01-31] MEDS: ZINC SULFATE 220 MG CAPSULE PO SCH (09:00)
[2018-01-31] MEDS: LAMOTRIGINE 100 MG TABLET PO SCH (09:00)
[2018-01-31] MEDS: LEVETIRACETAM 500 MG TABLET PO SCH ×2 (09:00→16:36)
[2018-01-31] MEDS ORDERED: POLYETHYLENE GLYCOL 3350 238 GM POWDER GT SCH (09:00)
[2018-01-31] MEDS ORDERED: Medication Not On Formulary EA (Multivitamins (Multivitamin) 1 EACH) PO SCH (09:00)
[2018-01-31] MEDS ORDERED: ZINC SULFATE 220 MG CAPSULE GT SCH (09:00)
[2018-01-31] MEDS ORDERED: LAMOTRIGINE 200 MG TABLET GT SCH (09:00)
[2018-01-31] MEDS ORDERED: Medication Not On Formulary EA (Ascorbic Acid (Vitamin C) 500 MG) GT SCH (09:00)
[2018-01-31] MEDS ORDERED: POTASSIUM CHLORIDE 20 MEQ TAB.PRT.SR PO SCH (09:00)
[2018-01-31] MEDS ORDERED: LEVOCARNITINE 330 MG TABLET GT SCH (09:00)
[2018-01-31] MEDS: CHOLECALCIFEROL 1,000 UNIT TABLET PO SCH (09:00)
[2018-01-31] MEDS ORDERED: CHOLECALCIFEROL 1,000 UNIT TABLET GT SCH (09:00)
[2018-01-31] MEDS: MULTIVITAMINS,THERAPEUTIC TABLET PO SCH (09:00)
[2018-01-31] MEDS ORDERED: POLYMYXIN B SULFATE 500,000 UNITS, BACITRACIN 50,000 UNITS, NORMAL SALINE 20 ML MC ONE ×3 (09:15)
[2018-01-31] MEDS ORDERED: CEFAZOLIN 1 G VIAL MC ONE (10:39)
[2018-01-31] MEDS ORDERED: DEXAMETHASONE SOD PHOSPHATE 4 MG INJ IV ONE (10:39)
[2018-01-31] MEDS ORDERED: IV NORMAL SALINE 1000 ML BAG IV ONE (10:39)
[2018-01-31] MEDS ORDERED: NEOSTIGMINE METHYLSULFATE 10 MG/10 ML VIAL IV ONE (10:39)
[2018-01-31] MEDS ORDERED: ONDANSETRON 4 MG/2 ML VIAL IV ONE (10:39)
[2018-01-31] MEDS ORDERED: GLYCOPYRROLATE 0.2 MG/ML VIAL MC ONE (10:39)
[2018-01-31] MEDS ORDERED: LIDOCAINE-MPF 2% 5 ML VIAL MC ONE (10:39)
[2018-01-31] MEDS ORDERED: DESFLURANE ANESTHESIA GAS 240 ML BOTTLE IH ONE (10:39)
[2018-01-31] MEDS ORDERED: PROPOFOL 200 MG/20 ML BOTTLE IV ONE (10:39)
--- NOTE | 2018-01-31 10:50 | NUR ---
To OR by bed
[2018-01-31] MEDS ORDERED: MIDAZOLAM HCL 10 MG/2 ML VIAL ONE (11:34)
[2018-01-31] MEDS ORDERED: MIDAZOLAM HCL 2 MG/2 ML VIAL ONE (11:34)
[2018-01-31] MEDS ORDERED: ROCURONIUM BROMIDE 50 MG/5 ML VIAL ONE (11:34)
[2018-01-31] MEDS ORDERED: SUCCINYLCHOLINE CHLORIDE 200 MG/10 ML VIAL ONE (11:34)
[2018-01-31] MEDS ORDERED: BUPIVACAINE PF 0.5% 30 ML VIAL ONE (12:30)
[2018-01-31] MEDS ORDERED: FENTANYL CITRATE 100 MCG/2 ML AMPUL ONE (13:14)
[2018-01-31] MEDS ORDERED: HYDROCODONE/APAP 10-325 MG TABLET PO PRN (14:00)
--- NOTE | 2018-01-31 14:15 | NUR ---
Received from recovery this S/P ORIF Right hi[ femoral neck fracture by bed. Vital signs taken and recorded. O2 at 2L/NC with O2 sat of 97%. Right hip incision with steri strips covered with mepilex. IVF infusing.
[2018-01-31 14:17] VITALS: BP 109/79
[2018-01-31] MEDS: MAGNESIUM SULFATE/D5W 100 ML IV SCH ×2 (14:19→16:31)
[2018-01-31] MEDS: POTASSIUM CHLORIDE 20 MEQ in IV D5 1/2 NS 1000 ML 1,000 ML IV PRN (14:25)
--- NOTE | 2018-01-31 16:30 | NUR ---
Patient restless, pulled out IV. Cleanse, repositioned in bed comfortably. Saline lock reinserted to Right hand. Morphine IV given as ordered
[2018-01-31] MEDS: MORPHINE SULFATE 2 MG/1 ML DISP.SYRIN IV PRN ×2 (16:39→23:18)
[2018-01-31] MEDS ORDERED: CLONIDINE HCL 0.3 MG TABLET GT SCH (18:00)
[2018-01-31] MEDS ORDERED: Medication Not On Formulary EA (Melatonin 10 MG) GT SCH (18:00)
--- NOTE | 2018-01-31 18:20 | NUR ---
Mother and caregiver witness 2 seizure. Vital signs taken and recorded BP 129/96; hr 133; RR 20. Repositioned in bed comfortably. Anton ENVIRONMENTAL COMMUNICATIONS SPECIALIST informed.
[2018-01-31] MEDS ORDERED: LORAZEPAM 2 MG/1 ML VIAL IV ONE (18:45)
--- NOTE | 2018-01-31 18:48 | NUR ---
Ativan IV given as ordered. Placed on tele. IV bolus ordered
[2018-01-31] MEDS ORDERED: IV NORMAL SALINE 500 ML IV ONE (19:00)
--- NOTE | 2018-01-31 19:25 | NUR ---
RECEIVED SHIFT REPORT FROM SANA PAINTING. PT IN BED AT THIS TIME, DOES NOT APPEAR TO BE IN APPARENT DISTRESS. PT ON SUPPLEMENTAL O2 2 LPM VIA N/C. RECEIVED REPORT RE PT'S SZ X 2 LASTING > 2 MIN EACH AROUND 1839. WHILE RECEIVING REPORT, PT EXPERIENCE ANOTHER EPISODE OF SZ @ 1920 LASTING ~1.5 MIN. SZ WAS NOTED TO BE THROUGHOUT ALL EXTREMITIES, V/S WNL @ 118/81, HR 130'S ON TELE MONITORING, RR 20, SPO2 97% ON 2 LPM. RAPID RESPONSE WAS CALLED, NO INTERVENTIONS WERE PROVIDED BY RR TEAM. PT MOVED TO ROOM 215, CLOSER TO THE NURSES' STATION, FOR CLOSER MONITORING. IVF 500 CC NS INFUSING AT 250 CC/HR VIA 22 G R HAND. PT'S TEMP WAS NOTED TO BE 99.1 AXILLARY, WILL PROVIDE COOLING MEASURES. BED IN LOW AND LOCKED POSITION WITH BILATERAL UPPER SIDERAILS UP. CALL LIGHT WITHIN REACH. MOTHER AND VIDEO EDITOR AT BEDSIDE.
[2018-01-31] MEDS: TOPIRAMATE 100 MG TABLET PO SCH (20:25)
[2018-01-31] MEDS: CEFAZOLIN 1 G in PREMIXED 1 EACH IV SCH (20:25)
[2018-01-31] MEDS: PHENOBARBITAL 60 MG TABLET PO SCH (20:26)
[2018-01-31] MEDS: LAMOTRIGINE 200 MG TABLET PO SCH (20:26)
[2018-01-31 20:34] LABS: CARBON DIOXIDE 29 mmol/L (21-32); CHLORIDE 104 mmol/L (98-107); CREATININE 0.5 mg/dL (0.6-1.3); GLUCOSE 140 mg/dL (74-106); MAGNESIUM 1.7 mg/dL (1.8-2.4); PHOSPHOROUS 2.2 mg/dL (2.5-4.9); POTASSIUM 3.9 mmol/L (3.5-5.1); UREA NITROGEN, BLOOD 7 mg/dL (7-18)
[2018-01-31 20:35] VITALS: BP 118/81
[2018-01-31] MEDS ORDERED: TOPIRAMATE 400 MG PO SCH (21:00)
[2018-01-31] MEDS ORDERED: LAMOTRIGINE 100 MG TABLET PO SCH (21:00)
--- NOTE | 2018-01-31 21:14 | NUR ---
PT COMFORTABLE IN BED. COOLING MEASURES OBSERVED. TEMP NOW 97.9 AXILLARY. VSS, STILL SINUS TACH ON TELE MONITORING. SUPPLEMENTAL O2 AT 2 LPM VIA N/C, SPO2 95-96%. PT IS UPGRADED TO LETTY STATUS, WILL GIVE REPORT TO SANA RINCON. Addendum: 01/31/18 at 2143 by SANDIP SANCHEZ RN PROGRAM COORDINATOR EXECUTIVE EDUCATION AT BEDSIDE. WILL REMAIN AT BEDSIDE THROUGH THE NIGHT.
[2018-01-31] MEDS: ACETAMINOPHEN ES 500 MG TABLET PO PRN (23:18)
[2018-01-31] MEDS: CLONIDINE HCL 0.3 MG TABLET PO SCH (23:19)
--- NOTE | 2018-01-31 23:30 | NUR ---
Patient is now LETTY level of care S/P Seizure activity.
--- NOTE | 2018-01-31 23:35 | NUR ---
Patient awake in bed slightly restless non verbal but frequent facial grimace noted. S/P ORIF Right femoral fracture. Right hip dressing intact w/ ice pack in place. Right hip precaution observed. He was slightly febrile beginning of shift & S/P seizure activity. Cooling measures applied, Morphine 2 mg IVP adm for pain. Tylenol 500 mg given for fever & monitored. Tele shows Sinus Tachycardia w/ HR 110-113 bpm. Vital signs WNL. Repositioned in bed, incontinence care provided. CPersonal personal care home administrator at bedside.
[2018-01-31 23:57] VITALS: BP 105/71
--- NOTE | 2018-02-01 | NUR ---
Resting comfortably, no sign of pain noted. Afebrile at this time 98.2F. Tele sinus tachycardia HR 11 bpm Addendum: 02/01/18 at 0144 by AURORA GUPTA RN DISREGARD ABOVE NOTES, WRONG ENTRY
--- NOTE | 2018-02-01 00:01 | NUR ---
Resting comfortably, no sign of pain noted. Afebrile at this time 98.2F. Tele sinus tachycardia HR 111 bpm. Caregiver at bedside.
[2018-02-01] MEDS: CEFAZOLIN 1 G in PREMIXED 1 EACH IV SCH (03:39)
[2018-02-01 05:25] VITALS: BP 99/73
[2018-02-01] MEDS: PANTOPRAZOLE SODIUM 40 MG TABLET.DR PO SCH (05:39)
[2018-02-01] MEDS: POTASSIUM CHLORIDE 20 MEQ in IV D5 1/2 NS 1000 ML 1,000 ML IV PRN (05:41)
[2018-02-01 06:48] LABS: CARBON DIOXIDE 26 mmol/L (21-32); CHLORIDE 104 mmol/L (98-107); CREATININE 0.6 mg/dL (0.6-1.3); GLUCOSE 98 mg/dL (74-106); MAGNESIUM 1.8 mg/dL (1.8-2.4); POTASSIUM 3.7 mmol/L (3.5-5.1); UREA NITROGEN, BLOOD 10 mg/dL (7-18)
--- NOTE | 2018-02-01 07:15 | NUR ---
Patient rested well, afebrile no seizure activity throughout shift. Sinus rhythm sinus tach on the monitor. Incontinence care provided, kept comfortable. Right hip precaution maintained. IVF maintained. Vital sign WNL.
[2018-02-01 07:31] VITALS: BP 108/76
[2018-02-01] MEDS: MIRALAX 17 GM POWD.PACK PO SCH ×2 (09:10→17:06)
[2018-02-01] MEDS: CHOLECALCIFEROL 1,000 UNIT TABLET PO SCH (09:11)
[2018-02-01] MEDS: DOCUSATE SODIUM 100 MG CAPSULE PO SCH ×2 (09:11→17:06)
[2018-02-01] MEDS: ASCORBIC ACID 500 MG TABLET PO SCH ×2 (09:11→17:06)
[2018-02-01] MEDS: LEVETIRACETAM 500 MG TABLET PO SCH ×2 (09:12→17:06)
[2018-02-01] MEDS: ZINC SULFATE 220 MG CAPSULE PO SCH (09:12)
[2018-02-01] MEDS: MULTIVITAMINS,THERAPEUTIC TABLET PO SCH (09:12)
[2018-02-01] MEDS: LAMOTRIGINE 100 MG TABLET PO SCH (09:13)
[2018-02-01] MEDS: PHENOBARBITAL 60 MG TABLET PO SCH ×2 (09:14→20:55)
[2018-02-01] MEDS: LEVOCARNITINE 330 MG TABLET PO SCH ×3 (09:20→17:07)
--- NOTE | 2018-02-01 11:30 | NUR ---
PATIENT MOTHER REFUSED VITAL SIGNS AND NOT TO WAKE UP OR TOUCH SON AT THIS TIME.
[2018-02-01 11:44] LABS: BASOPHILS # (AUTO) 0.1 K/uL (0.0-8.0); BASOPHILS % (AUTO) 0.8 % (0.0-2.0); EOSINOPHILS # (AUTO) 0.2 K/uL (0.0-0.7); EOSINOPHILS % (AUTO) 1.9 % (0.0-7.0); HEMATOCRIT 38.8 % (36.7-47.1); HEMOGLOBIN 13.3 g/dL (12.5-16.3); LYMPHOCYTES # (AUTO) 1.6 K/uL (20.0-40.0); MEAN CORPUSCULAR HEMOGLOBIN 31.8 uug (23.8-33.4); MEAN CORPUSCULAR HGB CONC 34 g/dL (32.5-36.3); MEAN CORPUSCULAR VOLUME 92.7 fL (73.0-96.2); MONOCYTES # (AUTO) 0.6 K/uL (2.0-10.0); MONOCYTES % (AUTO) 7.7 % (0.0-11.0); NEUTROPHILS # (AUTO) 5.9 K/uL (1.8-8.9); NEUTROPHILS % (AUTO) 70.6 % (38.5-71.5); PLATELET COUNT (AUTO) 183 K/uL (152-348); RED BLOOD CELL COUNT(AUTO) 4.18 MIL/uL (4.06-5.63); WHITE BLOOD COUNT (AUTO) 8.4 K/uL (3.6-10.2)
[2018-02-01 11:48] VITALS: BP 106/73
[2018-02-01] MEDS: ACETAMINOPHEN ES 500 MG TABLET PO PRN ×2 (15:40→20:20)
[2018-02-01 15:48] VITALS: BP 113/78
--- NOTE | 2018-02-01 15:48 | NUR ---
Rectal temperature of 102.0 cooling measures implemented, and antipyretics administered. Per protocol, blood cultures orders as well. Attending DISABILITY REPRESENTATIVE. Anton notified. Pt's mother at bedside.
--- NOTE | 2018-02-01 16:00 | NUR ---
As reported by mother who remains at bedside pt. with two small episodes of seizures each lasting less than 5seconds. Upon assessment patient resting quietly no seizures activity noted, no medication needed at this time. Attending Manda. who's currently present in the unit notified, orders to continue with care plan, no new orders received. Pt's mother and private sitter who remains at bedside educated on the need to push call light and alert medical staff when seizure activity noted. They both verbalized understanding.
--- NOTE | 2018-02-01 18:30 | NUR ---
Temperature of 102.3 rectally patient on continuous cooling measures.
[2018-02-01 19:33] VITALS: BP 114/86
--- NOTE | 2018-02-01 20:15 | NUR ---
PER MOTHER PATIENT HAVING SEIZURES,CHECK ON PATIENT NON WITNESS HR WITH NO CHANGES ON THE HEART MONITOR AND RR 20 HR 80S BREATHING EVEN AND UNLABORED ,NO SHAKING TREMOR NOTED OR SEEN PER MOTHER THIS IS DIFFERENT FORM OF SEIZURES FROM THE PREVIOUS SEIZURES HIS BEEN HAVING AND ITS A NEW KIND.CALLED LINUS BARROSO AND NOTIFIED AND CALLED FOR ATIVAN ORDERS .
--- NOTE | 2018-02-01 20:20 | NUR ---
PRN TYLENOL GIVEN PRN FOR FEVER TEMPERATURE OF 102.RECTALLY.ICE COMPRESSED/COOLING MEASURES APPLIED TO BILATERAL ARM PIT AND GROIN AREA .PATIENT MOTHER REFUSED THE COOLING BLANKET,PLACE AT BEDSIDE .
[2018-02-01] MEDS: CLONIDINE HCL 0.3 MG TABLET PO SCH (20:54)
[2018-02-01] MEDS: LAMOTRIGINE 200 MG TABLET PO SCH (20:54)
[2018-02-01] MEDS: TOPIRAMATE 100 MG TABLET PO SCH (20:55)
--- NOTE | 2018-02-01 21:00 | NUR ---
DUE PO MEDICATION GIVEN AND TOLERATED WITH VANILLA PUDDING .
--- NOTE | 2018-02-01 21:00 | NUR ---
INFORMED NURSE IN CHARGE THAT PATIENT MOTHER BEEN COMPLAINING THAT NOTHING BEEN DONE WITH THE SEIZURES HIS SON IS HAVING THIS THIS MORNING. SHE IS VERY UPSET AND ANGRY .INFORMED CHARGE NURSE SHE NEEDS TO TALK WITH PATENTS MOTHER .
--- NOTE | 2018-02-01 21:19 | NUR ---
NURSING LEMON GROWER LAN AND NURSE IN CHARGE FEMI AT BEDSIDE WITH PATIENTS MOTHER.TO WITNESS WHAT THE MOTHER SAYING THAT THE PATIENT IS HAVING INTERMITTENT ON AND OFF SEIZURES ABOUT 14 EPISODES SINCE THE LAST HOUR 1900TO SINCE SHES BEEN HERE, MOTHER SAYING HIS HAVING NOW A SEIZURE BUT TH NURSING LEMON GROWER AT BEDSIDE SAYING HIS NOT WITNESSING IT NO CHANGE IN HR,RR AND VITAL ARE NORMAL HEART MONITOR RATE RHYTHM NORMAL .
--- NOTE | 2018-02-01 21:30 | NUR ---
LINUS BARROSO AT BEDSIDE AND SPOKED WITH PATIENT MOTHER WITH REGARDS TO THE SEIZURES AND MEDICATION.
[2018-02-01] MEDS: LORAZEPAM 2 MG/1 ML VIAL IV PRN (21:31)
[2018-02-01] MEDS ORDERED: LORAZEPAM 2 MG/1 ML VIAL IV ONE (22:00)
--- NOTE | 2018-02-02 01:00 | NUR ---
Nursing Note: Pt removed IV disloged on right arm. New IV restarted. Frequent visual checks done. hay rake operator at bed side. Seizure precautions observed. Bed in low position. Bed in locked position. Continue to monitor. Addendum: 02/03/18 at 0524 by DEB BARRIGA RN VOID: In Error
--- NOTE | 2018-02-02 01:30 | NUR ---
POST OP SITE RIGHT HIP DRESSING SOILED GOT WET WITH URINE ,CHANGED DRESSING PLACE 4X4 AND COVER WITH TRANSPARENT DRESSING . KEEP DRESSING DRY AND INTACT .
--- NOTE | 2018-02-02 01:45 | NUR ---
PATIENT HAD A BM MODERATE IN AMT ,BROWNISH COLOR ,ALSO INCONTINENT URINE,CHANGED SOILED LINENS AND GOWN ,TURNED AND REPOSITION ,HOB UP .
[2018-02-02] MEDS: MORPHINE SULFATE 2 MG/1 ML DISP.SYRIN IV PRN (02:07)
[2018-02-02] MEDS: POTASSIUM CHLORIDE 20 MEQ in IV D5 1/2 NS 1000 ML 1,000 ML IV PRN (02:49)
--- NOTE | 2018-02-02 03:22 | NUR ---
LINUS BARROSO MADE AWARE ABOUT PATENT HR 120 TO 130 ,GIVEN PRN MORPHINE FOR PAIN.WITH ORDERS TO D/C NORCO ,LOVENOX SQ Q DAILY ,CXR IN AM .CBC AND BNP.WILL CONTINUE TO MONITOR HR AND PAIN LEVELS
[2018-02-02 03:30] VITALS: BP 98/53
--- NOTE | 2018-02-02 04:00 | NUR ---
GIVEN PRN TYLENOL FOR TEMPERATURE OF 101.2 ,CRUSHED MED AND PATIENT TOOK WITH VANILLA PUDDING .
--- NOTE | 2018-02-02 04:10 | NUR ---
COOLING MEASURES DONE ,ICE COMPRESS TO BILATERAL GROIN AND ARM PIT AREA APPLIED .
[2018-02-02] MEDS: ACETAMINOPHEN ES 500 MG TABLET PO PRN (04:49)
[2018-02-02] MEDS: PANTOPRAZOLE SODIUM 40 MG TABLET.DR PO SCH (06:02)
[2018-02-02 06:36] LABS: BASOPHILS # (AUTO) 0.1 K/uL (0.0-8.0); BASOPHILS % (AUTO) 0.7 % (0.0-2.0); EOSINOPHILS % (AUTO) 0.4 % (0.0-7.0); HEMATOCRIT 37.8 % (36.7-47.1); LYMPHOCYTES # (AUTO) 1.3 K/uL (20.0-40.0); LYMPHOCYTES % (AUTO) 14.8 % (20.5-51.5); MEAN CORPUSCULAR HEMOGLOBIN 31.2 uug (23.8-33.4); MEAN CORPUSCULAR HGB CONC 34 g/dL (32.5-36.3); MEAN CORPUSCULAR VOLUME 90.6 fL (73.0-96.2); MONOCYTES # (AUTO) 0.7 K/uL (2.0-10.0); MONOCYTES % (AUTO) 8.1 % (0.0-11.0); NEUTROPHILS # (AUTO) 6.8 K/uL (1.8-8.9); PLATELET COUNT (AUTO) 191 K/uL (152-348); RED BLOOD CELL COUNT(AUTO) 4.17 MIL/uL (4.06-5.63); WHITE BLOOD COUNT (AUTO) 8.9 K/uL (3.6-10.2)
[2018-02-02 06:40] LABS: CARBON DIOXIDE 24 mmol/L (21-32); CHLORIDE 100 mmol/L (98-107); CREATININE 0.5 mg/dL (0.6-1.3); GLUCOSE 115 mg/dL (74-106); POTASSIUM 3.5 mmol/L (3.5-5.1); UREA NITROGEN, BLOOD 15 mg/dL (7-18)
--- NOTE | 2018-02-02 07:00 | NUR ---
LINUS BARROSO ROUNDING REPORT GIVEN AT PATIENT BEDSIDE INFORMED NO SEIZURES EPISODE SINCE THE LAST TOME HE SAW PATIENT .SINUS TACHYCARDIA ON THE HEART MONITOR RATE 102 TO 140.CONTINUE TO MONITOR ENDORSED TO THE DAY RN
[2018-02-02] MEDS: DOCUSATE SODIUM 100 MG CAPSULE PO SCH ×3 (08:54→18:07)
[2018-02-02] MEDS: ZINC SULFATE 220 MG CAPSULE PO SCH (08:54)
[2018-02-02] MEDS: MULTIVITAMINS,THERAPEUTIC TABLET PO SCH (08:54)
[2018-02-02] MEDS: PHENOBARBITAL 60 MG TABLET PO SCH ×2 (08:56→20:05)
[2018-02-02] MEDS: LEVETIRACETAM 500 MG TABLET PO SCH ×3 (08:57→18:07)
[2018-02-02] MEDS: LAMOTRIGINE 100 MG TABLET PO SCH (08:57)
[2018-02-02] MEDS: ASCORBIC ACID 500 MG TABLET PO SCH ×3 (08:58→18:07)
[2018-02-02] MEDS: CHOLECALCIFEROL 1,000 UNIT TABLET PO SCH (08:58)
[2018-02-02] MEDS: MIRALAX 17 GM POWD.PACK PO SCH ×3 (08:58→18:06)
[2018-02-02] MEDS: LEVOCARNITINE 330 MG TABLET PO SCH ×4 (08:58→18:06)
[2018-02-02] MEDS: ENOXAPARIN SODIUM 40 MG/0.4 ML DISP.SYRIN SQ SCH (09:00)
--- NOTE | 2018-02-02 09:00 | NUR ---
AM meds held. Pt noted to be sedated, drowsy and unable to take PO meds at this time. aware.
[2018-02-02 10:31] LABS: ABG BASE EXCESS -0.8 mmol/L; ABG HCO3 23.2 mmol/L; ABG PCO2 36.4 mmHg (35.0-45.0); ABG PH 7.423 (7.350-7.450); ABG PO2 66.2 mmHg (75.0-100.0); ABG SITE RIGHT BRACHIAL; COHb 1.5 % (0.5-1.5); MetHb 0.3 % (0.0-1.5); O2Hb 91.8 % (94.0-97.0); VENT MODE Nasal Cannula
--- NOTE | 2018-02-02 10:37 | NUR ---
Pt reassignment and full SBAR report given to SANA Mora.
--- NOTE | 2018-02-02 10:54 | NUR ---
Clinical Pharmacy Note: Vancomycin Dosing per Pharmacy Subjective: Vancomycin IV to start on this 32 yo male patient for cellulitis. Objective: BUN 15/Scr 0.5 WBC 8.9 Temperature 101.1 ht 182.8 cm wt 76.4 kg Assessment/Plan: Will start vancomycin 1250mg IVPB Q9hr for predicted vanco trough level of 16 mcg/ml. 1st dose is due at 1100. Plan to draw a vancomycin trough level prior to the 4th dose of vancomycin (not ordered yet). Will monitor renal function and adjust vancomycin dose, if needed, should renal function change significantly. Will follow daily. Addendum: 02/02/18 at 1100 by DAKOTAH OLVERA correction--- indication is sepsis
[2018-02-02] MEDS: PIPERACILLIN/TAZOBACTAM/D5W 3.375 G in PREMIXED 1 EACH IV SCH ×2 (10:58→18:17)
[2018-02-02 11:50] VITALS: BP 98/74
[2018-02-02] MEDS: ALBUTEROL SULFATE 2.5 MG/3 ML NEBU NEB SCH ×3 (11:57→19:06)
[2018-02-02] MEDS: VANCOMYCIN IV 1,250 MG in IV DEXTROSE 5% 500 ML IV SCH ×2 (12:08→20:05)
[2018-02-02 16:05] VITALS: BP 110/74
[2018-02-02 19:00] VITALS: BP 125/78
[2018-02-02] MEDS: TOPIRAMATE 100 MG TABLET PO SCH (20:05)
[2018-02-02] MEDS: LAMOTRIGINE 200 MG TABLET PO SCH (20:05)
[2018-02-02] MEDS: CLONIDINE HCL 0.3 MG TABLET PO SCH (20:06)
--- NOTE | 2018-02-02 21:00 | NUR ---
Nursing Note: Urine sample collected. Pt mother at bedside. Seizure precautions observed. Bed in low and locked position. Will continue to monitor.
--- NOTE | 2018-02-02 21:00 | NUR ---
Nursing Note: Discussed with pt mother plan of care. Pt awake alert and confused. Respirations even and unlabored on O2 at 3lpm. Seizure precautions observed at all times. Side rails padded. Bed in low position and locked. Call light in reach. Pt also has a caregiver at bedside all times provided by mother. Will continue to monitor.
[2018-02-02 22:55] LABS: *BILIRUBIN,URIN NEGATIVE (NEGATIVE); *BLOOD, URINE NEGATIVE (NEGATIVE); *CLARITY,URINE CLEAR (CLEAR); *COLOR,URINE LIGHT YELLOW (YELLOW); *KETONES,URINE NEGATIVE (NEGATIVE); *PROTEIN,URINE NEGATIVE (NEGATIVE); *UROBILINOGEN,URINE 0.2 E.U./dl (NORMAL); LEUKOCYTE ESTERASE ,URINE NEGATIVE (NEGATIVE); NITRITE, URINE NEGATIVE (NEGATIVE); PH,URINE 8.5 (5.0-8.0); UGLUCOSE NEGATIVE (NEGATIVE)
[2018-02-02 23:23] LABS: BACTERIA,URINE NONE SEEN /HPF (NONE SEEN); MUCUS,URINE FEW /LPF (0-FEW); RBC,URINE 0-3 /HPF (0-3); SQUAMOUS EPITHELIAL CELL,UR FEW /HPF (NONE SEEN); TRANSITIONAL EPI CELLS,URINE FEW /LPF (NONE SEEN); WBC,URINE 0-3 /HPF (0-3)
[2018-02-03] VITALS: BP 110/76
--- NOTE | 2018-02-03 01:00 | NUR ---
Nursing Note: Pt removed IV disloged on right arm. New IV restarted. Frequent visual checks done. stone fabricator at bed side. Seizure precautions observed. Bed in low position. Bed in locked position. Continue to monitor.
[2018-02-03] MEDS: PIPERACILLIN/TAZOBACTAM/D5W 3.375 G in PREMIXED 1 EACH IV SCH ×3 (01:54→17:58)
[2018-02-03 04:00] VITALS: BP 99/66
[2018-02-03] MEDS: LORAZEPAM 2 MG/1 ML VIAL IV PRN (04:30)
[2018-02-03] MEDS: VANCOMYCIN IV 1,250 MG in IV DEXTROSE 5% 500 ML IV SCH ×2 (04:30→13:55)
--- NOTE | 2018-02-03 04:30 | NUR ---
Nursing Note: Pt manipulating IV site and appears to be restless. IV site secured. Antibiotic infusion administered. Lorazepam administered as ordered. Bed in low and locked position. Side rails padded. Will continue to monitor.
[2018-02-03] MEDS: PANTOPRAZOLE SODIUM 40 MG TABLET.DR PO SCH (06:05)
[2018-02-03 06:30] LABS: POTASSIUM 3.4 mmol/L (3.5-5.1)
[2018-02-03 06:31] LABS: CARBON DIOXIDE 25 mmol/L (21-32); CHLORIDE 103 mmol/L (98-107); CREATININE 0.5 mg/dL (0.6-1.3); GLUCOSE 152 mg/dL (74-106); MAGNESIUM 1.8 mg/dL (1.8-2.4); PHOSPHOROUS 3.6 mg/dL (2.5-4.9); UREA NITROGEN, BLOOD 9 mg/dL (7-18)
[2018-02-03 06:37] LABS: BASOPHILS # (AUTO) 0.1 K/uL (0.0-8.0); BASOPHILS % (AUTO) 0.7 % (0.0-2.0); EOSINOPHILS # (AUTO) 0.2 K/uL (0.0-0.7); EOSINOPHILS % (AUTO) 2.8 % (0.0-7.0); HEMOGLOBIN 11.7 g/dL (12.5-16.3); LYMPHOCYTES # (AUTO) 1.9 K/uL (20.0-40.0); LYMPHOCYTES % (AUTO) 22.4 % (20.5-51.5); MEAN CORPUSCULAR HEMOGLOBIN 31.8 uug (23.8-33.4); MEAN CORPUSCULAR HGB CONC 35 g/dL (32.5-36.3); MEAN CORPUSCULAR VOLUME 90.8 fL (73.0-96.2); MONOCYTES # (AUTO) 0.8 K/uL (2.0-10.0); MONOCYTES % (AUTO) 9.1 % (0.0-11.0); NEUTROPHILS # (AUTO) 5.4 K/uL (1.8-8.9); PLATELET COUNT (AUTO) 167 K/uL (152-348); RED BLOOD CELL COUNT(AUTO) 3.67 MIL/uL (4.06-5.63); WHITE BLOOD COUNT (AUTO) 8.3 K/uL (3.6-10.2)
[2018-02-03 06:55] LABS: HEMATOCRIT 33.3 % (36.7-47.1)
[2018-02-03] MEDS: ALBUTEROL SULFATE 2.5 MG/3 ML NEBU NEB SCH ×4 (07:15→21:18)
[2018-02-03 08:00] VITALS: BP 112/58
--- NOTE | 2018-02-03 09:51 | NUR ---
Clinical Pharmacy Note: Vancomycin Dosing per Pharmacy Subjective: Vancomycin IV to start on this 32 yo male patient for sepsis. Objective: BUN 9/Scr 0.5 WBC 8.3 Temperature 98.2 ht 182.8 cm wt 76.4 kg trough: pending today at 1330 Assessment/Plan: Will continue vancomycin 1250mg IVPB Q9hr for predicted vanco trough level of 16 mcg/ml. Trough ordered before 4th scheduled dose due today at 1330. Will check level at that time and adjust as needed. Will follow Addendum: 02/03/18 at 1403 by SHEREEN OLVERA UPDATE: TROUGH AT 1330 10.2, WILL CHANGE REGIMEN TO 1500,G Q8H FOR NEW ESTIMATED TROUGH OF 15.6. WILL ORDER TROUGH BEFORE 4TH DOSE (NOT ORDERED YET). WILL FOLLOW
[2018-02-03] MEDS: PHENOBARBITAL 60 MG TABLET PO SCH ×2 (09:55→20:45)
[2018-02-03] MEDS: ZINC SULFATE 220 MG CAPSULE PO SCH (09:55)
[2018-02-03] MEDS: LEVETIRACETAM 500 MG TABLET PO SCH ×2 (09:55→16:56)
[2018-02-03] MEDS: CHOLECALCIFEROL 1,000 UNIT TABLET PO SCH (09:56)
[2018-02-03] MEDS: LAMOTRIGINE 100 MG TABLET PO SCH (09:56)
[2018-02-03] MEDS: ASCORBIC ACID 500 MG TABLET PO SCH ×2 (09:56→16:48)
[2018-02-03] MEDS: DOCUSATE SODIUM 100 MG CAPSULE PO SCH ×2 (09:56→16:48)
[2018-02-03] MEDS: LEVOCARNITINE 330 MG TABLET PO SCH ×3 (09:56→16:48)
[2018-02-03] MEDS: MIRALAX 17 GM POWD.PACK PO SCH ×2 (09:57→16:48)
[2018-02-03] MEDS: ENOXAPARIN SODIUM 40 MG/0.4 ML DISP.SYRIN SQ SCH (09:58)
[2018-02-03] MEDS: MULTIVITAMINS,THERAPEUTIC TABLET PO SCH (09:59)
[2018-02-03] MEDS ORDERED: POTASSIUM CHLORIDE 20 MEQ POWDER PACKET PO ONE (11:30)
[2018-02-03 11:57] VITALS: BP 103/68
[2018-02-03 16:09] VITALS: BP 107/76
--- NOTE | 2018-02-03 16:20 | NUR ---
Pt remains awake,alert,non verbal.Able to follow simple commands.No s/s of pain,discomfort.No seizure activity noted.Swallow medication without difficulty.No s/s of aspiration.Spoke with patient mother,updated with plan of care.
--- NOTE | 2018-02-03 17:15 | NUR ---
RECEIVED A 32 Y/O MALE PT FROM SANA REYES A CASE OF KAMINI GASTAUT SYNDROME. PT IS AWAKE AND ALERT, BREATHING FREELY. ABLE TO FOLLOW SIMPLE COMMANDS. NO SEIZURE ACTIVITY NOTED. PT RECEIVED SWALLOWED ORAL MEDICATION ,NO ASPIRATION OCCURRENCE. PT IS INCONTINENT, AND HAS A DIAPER.
--- NOTE | 2018-02-03 19:20 | NUR ---
Received patient lying in bed. Awake and alert. Non-verbal. Private caregiver on bedside. In no acute distress. On o2 at 4LPM via NC in place. O2 sat at 96%. IV site on left hand intact and patent. Sinus tachy on tele at 110/min. Safety measure initiated.
[2018-02-03 19:59] VITALS: BP 105/70
[2018-02-03] MEDS: LAMOTRIGINE 200 MG TABLET PO SCH (20:45)
[2018-02-03] MEDS: TOPIRAMATE 100 MG TABLET PO SCH (20:45)
[2018-02-03] MEDS: CLONIDINE HCL 0.3 MG TABLET PO SCH (20:45)
[2018-02-03] MEDS: VANCOMYCIN IV 1,500 MG in IV DEXTROSE 5% 500 ML IV SCH (21:06)
[2018-02-04 00:49] VITALS: BP 107/76
[2018-02-04] MEDS: PIPERACILLIN/TAZOBACTAM/D5W 3.375 G in PREMIXED 1 EACH IV SCH ×3 (01:01→17:56)
[2018-02-04 04:13] VITALS: BP 90/61
[2018-02-04] MEDS: VANCOMYCIN IV 1,500 MG in IV DEXTROSE 5% 500 ML IV SCH ×4 (05:04→21:49)
[2018-02-04] MEDS: PANTOPRAZOLE SODIUM 40 MG TABLET.DR PO SCH (06:14)
--- NOTE | 2018-02-04 06:33 | NUR ---
Awake and alert. Non-verbal. Able to follow simple direction. Private caregiver on bedside. In no acute distress. Keeps on taking off O2. Left it off. O2 sat at 95% on RA. No seizure episode noted. IV site on left hand intact and patent. No adverse reaction from IV ABX. NSR on tele at 87/min. Safety measure maintained.
[2018-02-04] MEDS: ALBUTEROL SULFATE 2.5 MG/3 ML NEBU NEB SCH ×4 (08:11→20:30)
[2018-02-04] MEDS: MULTIVITAMINS,THERAPEUTIC TABLET PO SCH (08:17)
[2018-02-04] MEDS: DOCUSATE SODIUM 100 MG CAPSULE PO SCH ×2 (08:17→16:27)
[2018-02-04] MEDS: CHOLECALCIFEROL 1,000 UNIT TABLET PO SCH (08:17)
[2018-02-04] MEDS: LEVETIRACETAM 500 MG TABLET PO SCH ×2 (08:17→16:27)
[2018-02-04] MEDS: ASCORBIC ACID 500 MG TABLET PO SCH ×2 (08:17→16:27)
[2018-02-04] MEDS: ZINC SULFATE 220 MG CAPSULE PO SCH (08:17)
[2018-02-04] MEDS: MIRALAX 17 GM POWD.PACK PO SCH ×2 (08:18→16:26)
[2018-02-04] MEDS: PHENOBARBITAL 60 MG TABLET PO SCH ×2 (08:18→20:00)
[2018-02-04] MEDS: LAMOTRIGINE 100 MG TABLET PO SCH (08:18)
[2018-02-04] MEDS: LEVOCARNITINE 330 MG TABLET PO SCH ×3 (08:21→16:28)
[2018-02-04] MEDS: ENOXAPARIN SODIUM 40 MG/0.4 ML DISP.SYRIN SQ SCH (08:22)
--- NOTE | 2018-02-04 10:14 | NUR ---
Clinical Pharmacy Note: Vancomycin Dosing per Pharmacy Subjective: Vancomycin IV to continue on this 32 yo male patient for sepsis. Objective: BUN 9/Scr 0.5 (02/03) WBC 5.3 Temperature 98.2 ht 182.8 cm wt 76.4 kg trough: pending today at 2130 Assessment/Plan: Will continue vancomycin 1500mg q8hr for predicted vanco trough level of 15.6 mcg/ml. Trough ordered before 4th scheduled dose due today at 2130. RN endorsed to hold dose if Tr >20. Will check level tomrorow am and adjust as needed. Will follow
[2018-02-04 11:46] VITALS: BP 107/77
[2018-02-04 15:40] VITALS: BP 105/84
--- NOTE | 2018-02-04 18:38 | NUR ---
PT OBSERVED IN ROOM RESTING IN BED,CAREGIVER AT BEDSIDE, RA, DRESSING CHANGED, COMPLIANT WITH MEDICATIONS, PT WORKED WITH PT. NO SIGNS OF ACUTE DISTRESS. CONTINUE TO MONITOR.
--- NOTE | 2018-02-04 19:15 | NUR ---
Received patient sitting up in bed. Private caregiver on bedside. Patient awake and alert. Non-verbal. Smiling when spoken to. In no acute distress. IV site on left hand intact and patent. Safety measure initiated.
[2018-02-04] MEDS: LAMOTRIGINE 200 MG TABLET PO SCH (20:00)
[2018-02-04] MEDS: LACTOBACILLUS RHAMNOSUS GG 1 EACH CAPSULE PO SCH (20:00)
[2018-02-04] MEDS: TOPIRAMATE 100 MG TABLET PO SCH (20:00)
[2018-02-04] MEDS: CLONIDINE HCL 0.3 MG TABLET PO SCH (20:01)
[2018-02-04 20:07] VITALS: BP 111/78
[2018-02-05] MEDS: PIPERACILLIN/TAZOBACTAM/D5W 3.375 G in PREMIXED 1 EACH IV SCH ×3 (01:57→17:03)
[2018-02-05 04:38] VITALS: BP 94/63
[2018-02-05] MEDS: VANCOMYCIN IV 1,500 MG in IV DEXTROSE 5% 500 ML IV SCH ×3 (06:01→21:06)
[2018-02-05] MEDS: PANTOPRAZOLE SODIUM 40 MG TABLET.DR PO SCH (06:01)
--- NOTE | 2018-02-05 06:15 | NUR ---
Awake and alert. Non-verbal. Able to follow simple direction. Private caregiver on bedside. In no acute distress. O2 sat at 94% on RA. No seizure episode noted. IV site on left hand intact and patent. No adverse reaction from IV ABX. Safety measure and seizure precaution maintained.
[2018-02-05 06:18] LABS: BASOPHILS # (AUTO) 0.1 K/uL (0.0-8.0); BASOPHILS % (AUTO) 1.1 % (0.0-2.0); EOSINOPHILS # (AUTO) 0.5 K/uL (0.0-0.7); EOSINOPHILS % (AUTO) 7.8 % (0.0-7.0); HEMATOCRIT 35.4 % (36.7-47.1); HEMOGLOBIN 12.4 g/dL (12.5-16.3); LYMPHOCYTES # (AUTO) 1.8 K/uL (20.0-40.0); LYMPHOCYTES % (AUTO) 25.1 % (20.5-51.5); MEAN CORPUSCULAR HEMOGLOBIN 31.9 uug (23.8-33.4); MEAN CORPUSCULAR HGB CONC 35 g/dL (32.5-36.3); MEAN CORPUSCULAR VOLUME 90.7 fL (73.0-96.2); MONOCYTES # (AUTO) 0.7 K/uL (2.0-10.0); MONOCYTES % (AUTO) 9.6 % (0.0-11.0); NEUTROPHILS % (AUTO) 56.4 % (38.5-71.5); PLATELET COUNT (AUTO) 236 K/uL (152-348)
[2018-02-05 06:27] LABS: CARBON DIOXIDE 23 mmol/L (21-32); CHLORIDE 102 mmol/L (98-107); CREATININE 0.5 mg/dL (0.6-1.3); GLUCOSE 93 mg/dL (74-106); MAGNESIUM 1.9 mg/dL (1.8-2.4); PHOSPHOROUS 4.7 mg/dL (2.5-4.9); POTASSIUM 3.5 mmol/L (3.5-5.1); UREA NITROGEN, BLOOD 12 mg/dL (7-18)
[2018-02-05] MEDS: ALBUTEROL SULFATE 2.5 MG/3 ML NEBU NEB SCH ×4 (07:44→19:45)
[2018-02-05] MEDS: DOCUSATE SODIUM 100 MG CAPSULE PO SCH ×2 (08:05→16:59)
[2018-02-05] MEDS: MIRALAX 17 GM POWD.PACK PO SCH ×2 (08:05→17:00)
[2018-02-05] MEDS: LAMOTRIGINE 100 MG TABLET PO SCH (08:06)
[2018-02-05] MEDS: CHOLECALCIFEROL 1,000 UNIT TABLET PO SCH (08:06)
[2018-02-05] MEDS: ZINC SULFATE 220 MG CAPSULE PO SCH (08:06)
[2018-02-05] MEDS: LACTOBACILLUS RHAMNOSUS GG 1 EACH CAPSULE PO SCH ×2 (08:06→20:12)
[2018-02-05] MEDS: LEVETIRACETAM 500 MG TABLET PO SCH ×2 (08:06→16:59)
[2018-02-05] MEDS: PHENOBARBITAL 60 MG TABLET PO SCH ×2 (08:06→20:12)
[2018-02-05] MEDS: ASCORBIC ACID 500 MG TABLET PO SCH ×2 (08:06→16:59)
[2018-02-05] MEDS: MULTIVITAMINS,THERAPEUTIC TABLET PO SCH (08:07)
[2018-02-05] MEDS: LEVOCARNITINE 330 MG TABLET PO SCH ×3 (08:07→16:59)
[2018-02-05] MEDS: ENOXAPARIN SODIUM 40 MG/0.4 ML DISP.SYRIN SQ SCH (08:08)
--- NOTE | 2018-02-05 09:34 | NUR ---
Clinical Pharmacy Note: Vancomycin Dosing per Pharmacy Subjective: Vancomycin IV to continue on this 32 yo male patient for sepsis. Objective: BUN 12/Scr 0.5 WBC 7 Temperature 97.6 ht 182.8 cm wt 76.4 kg trough: 18.2 (drawn on 02/04 at 2130) Assessment/Plan: Since vanco trough is within therapeutic range of 15-20 mcg/ml, will continue same dose of vancomycin 1500mg IVPB q8hr for now. Will monitor renal function & repeat the dose if needed. Will follow
[2018-02-05 11:51] VITALS: BP 106/74
[2018-02-05] MEDS: LORAZEPAM 2 MG/1 ML VIAL IV PRN (15:37)
[2018-02-05 15:40] VITALS: BP 112/77
--- NOTE | 2018-02-05 17:26 | NUR ---
PT HAS REDNESS ON INNER THIGHS NEAR GROIN, AREA CLEANSED, PATTED DRY, AND Z GUARD APPLIED. CONTINUE TO MONITOR PT.
--- NOTE | 2018-02-05 18:20 | NUR ---
PT IN BED WITH NO SIGNS OF ACUTE DISTRESS, CAREGIVER AT THE BEDSIDE, CALM, COMPLIANT WITH MEDICATION , ON RA, NO SIGNS OF PAIN, EATING MEALS. CONTINUE TO MONITOR PT.
--- NOTE | 2018-02-05 19:15 | NUR ---
Received patient lying in bed. Private caregiver on bedside. Patient awake and alert. Non-verbal. Able to make brief eye contact when spoken to. In no acute distress. IV site on left hand intact and patent. Safety measure initiated.
[2018-02-05] MEDS: LAMOTRIGINE 200 MG TABLET PO SCH (20:12)
[2018-02-05] MEDS: TOPIRAMATE 100 MG TABLET PO SCH (20:12)
[2018-02-05] MEDS: CLONIDINE HCL 0.3 MG TABLET PO SCH (20:13)
[2018-02-05 21:16] VITALS: BP 110/80
[2018-02-06] MEDS: PIPERACILLIN/TAZOBACTAM/D5W 3.375 G in PREMIXED 1 EACH IV SCH ×3 (01:16→17:56)
[2018-02-06 04:12] VITALS: BP 93/62
[2018-02-06] MEDS: PANTOPRAZOLE SODIUM 40 MG TABLET.DR PO SCH (06:02)
[2018-02-06] MEDS: VANCOMYCIN IV 1,500 MG in IV DEXTROSE 5% 500 ML IV SCH ×2 (06:02→13:04)
--- NOTE | 2018-02-06 06:10 | NUR ---
IV line on left hand dislodged. Started new IV line on left wrist #22 gauge.
--- NOTE | 2018-02-06 06:40 | NUR ---
Patient slept well at night. Private caregiver on bedside. In no acute distress. No seizure episode noted. IV site on left hand intact and patent. No adverse effect from IV ABX. Safety measure and seizure precaution maintained.
[2018-02-06] MEDS: ALBUTEROL SULFATE 2.5 MG/3 ML NEBU NEB SCH ×3 (07:17→15:59)
[2018-02-06] MEDS: LEVETIRACETAM 500 MG TABLET PO SCH ×2 (08:15→16:48)
[2018-02-06] MEDS: LACTOBACILLUS RHAMNOSUS GG 1 EACH CAPSULE PO SCH (08:15)
[2018-02-06] MEDS: DOCUSATE SODIUM 100 MG CAPSULE PO SCH ×2 (08:15→16:48)
[2018-02-06] MEDS: ASCORBIC ACID 500 MG TABLET PO SCH ×2 (08:15→16:48)
[2018-02-06] MEDS: LAMOTRIGINE 100 MG TABLET PO SCH (08:15)
[2018-02-06] MEDS: CHOLECALCIFEROL 1,000 UNIT TABLET PO SCH (08:15)
[2018-02-06] MEDS: LEVOCARNITINE 330 MG TABLET PO SCH ×3 (08:16→16:47)
[2018-02-06] MEDS: ENOXAPARIN SODIUM 40 MG/0.4 ML DISP.SYRIN SQ SCH (08:22)
[2018-02-06] MEDS: ZINC SULFATE 220 MG CAPSULE PO SCH (08:24)
[2018-02-06] MEDS: MULTIVITAMINS,THERAPEUTIC TABLET PO SCH (08:32)
[2018-02-06] MEDS: PHENOBARBITAL 60 MG TABLET PO SCH (08:32)
[2018-02-06] MEDS: MIRALAX 17 GM POWD.PACK PO SCH ×2 (08:34→16:48)
--- NOTE | 2018-02-06 08:45 | NUR ---
Clinical Pharmacy Note: Vancomycin Dosing per Pharmacy Subjective: Vancomycin IV to continue on this 32 yo male patient for sepsis. Objective: BUN 12/Scr 0.5 (02/05) WBC 7 (02/05) Temperature 97.4 ht 182.8 cm wt 76.4 kg trough: 18.2 (drawn on 02/04 at 2130) Assessment/Plan: Since last trough within range, will continue same dose of vancomycin 1500mg IVPB q8hr for now. Will monitor renal function & repeat the dose if needed. Will follow
[2018-02-06 11:33] VITALS: BP 98/69
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
[2018-02-06 15:03] VITALS: BP 110/82
--- NOTE | 2018-02-06 19:15 | NUR ---
PT D/C HOME VIA AMBULANCE. EXIT CARE PACKET AND ALL BELONGINGS GIVEN TO MOTHER AMY, ID BAND AND IV SITE REMOVED. PT WILL GET HOME HEALTH VISITS FROM [facility]. MOTHER WILL MAKE FOLLOW UP APPOINTMENT FOR SON.
== END 2018-02-06 19:20 | disposition home health service (06) | DRG 480 ==
LOC: ER 15:17 → UNDOADMIN 18:17 → TELE 18:17 → MED 01-31 00:04 → TELE 01-31 18:50 → TELE-TD 01-31 21:04 → TELE 02-01 15:52 → MED 02-04 15:10
PROVIDERS: ADMIT Internal Medicine; ATTEND Nurse Practitioner Acute Care
PROC: 0QS604Z Reposition Right Upper Femur with Internal Fixation Device, Open Approach (ICD-10-PCS; principal; 2018-01-31 11:29)
DX: S72.034A Nondisplaced midcervical fracture of right femur, initial encounter for closed fracture (principal); G93.49 Other encephalopathy; G40.812 Lennox-Gastaut syndrome, not intractable, without status epilepticus; F84.9 Pervasive developmental disorder, unspecified; J98.11 Atelectasis; R65.10 Systemic inflammatory response syndrome (SIRS) of non-infectious origin without acute organ dysfunction; S92.415A Nondisplaced fracture of proximal phalanx of left great toe, initial encounter for closed fracture; W19.XXXA Unspecified fall, initial encounter; Y92.89 Other specified places as the place of occurrence of the external cause; T42.3X5A Adverse effect of barbiturates, initial encounter; Y92.009 Unspecified place in unspecified non-institutional (private) residence as the place of occurrence of the external cause; Z87.81 Personal history of (healed) traumatic fracture; Z79.899 Other long term (current) drug therapy; R09.89 Other specified symptoms and signs involving the circulatory and respiratory systems; E87.6 Hypokalemia
CPT/HCPCS: 36415; 36600; 71045; 73502; 73503; 73610; 73630; 76000; 80184; 83605; 83735; 84100; 85025; 85730; 86850; 86900; 86901; 87040; 87086; 94640; 94664; 97110; 97530; A4649; A4663; A9150; C1713; J0330; J0690; J1100; J1650; J2060; J2250; J2270; J2405; J2543; J2710; J3010; J3370; J3475; J3480; J3490; J7030; J7040; J7050; J7060; J8499

== ENCOUNTER 2018-02-20 12:17 | Emergency (ER) | payer MEDICARE, OTHER ==
[~2018-02-20] VITALS: Ht 185.4 cm; Wt 86.2 kg
[~2018-02-20 12:17] MED LIST changes: +ACET-73 PO; +CHOL100062 PO; +CLON0.3T PO; +DOCU100T2 PO; +LAMO100T PO; -LAMO200T2 GT; +LEVE500T20 PO; +LEVO330T PO; +MAGN296S PO; +MELA3TAB PO; +MULT1TAB73 PO; +NAPR220C15 PO; +PANT40SU2 PO; +PHEN20EL5 PO; +POLY17PO4 PO; +POTA20LI4 PO; +TOPI200T PO; +ZINC220C8 PO
--- NOTE | 2018-02-20 12:29 | NUR ---
Dr Maria at the bedside for MSE.
--- NOTE | 2018-02-20 13:01 | NUR ---
Patient discharged to home in stable conditon. Written and verbal after care instructions given. Patient verbalizes understanding of instructions.
== END 2018-02-20 13:05 | disposition home or self-care (01) ==
LOC: ER 12:17
DX: B37.89 Other sites of candidiasis (principal)
CPT/HCPCS: A4663

== ENCOUNTER 2018-04-17 17:15 | Inpatient (IN) | payer MEDICARE, OTHER ==
[~2018-04-17] VITALS: Ht 185.4 cm; Wt 86.2 kg
[2018-04-17] MEDS ORDERED: LEVETIRACETAM 500 MG/5 ML VIAL IV ONE (17:40)
[2018-04-17] MEDS ORDERED: LORAZEPAM 2 MG/1 ML VIAL ONE (17:40)
[2018-04-17] MEDS ORDERED: LORAZEPAM 2 MG/1 ML VIAL IM ONE (17:45)
[2018-04-17] MEDS ORDERED: LEVETIRACETAM IV 500 MG in IV DEXTROSE 5% 100 ML IV ONE (17:45)
[2018-04-17] MEDS ORDERED: LORAZEPAM 2 MG/1 ML VIAL IV ONE (17:45)
[2018-04-17 17:48] LABS: BASOPHILS % (AUTO) 0.8 % (0.0-2.0); EOSINOPHILS # (AUTO) 0.2 K/uL (0.0-0.7); EOSINOPHILS % (AUTO) 2.6 % (0.0-7.0); HEMATOCRIT 41.9 % (36.7-47.1); HEMOGLOBIN 14.4 g/dL (12.5-16.3); LYMPHOCYTES # (AUTO) 1.9 K/uL (20.0-40.0); MEAN CORPUSCULAR HEMOGLOBIN 31.1 uug (23.8-33.4); MEAN CORPUSCULAR HGB CONC 34 g/dL (32.5-36.3); MEAN CORPUSCULAR VOLUME 90.6 fL (73.0-96.2); MONOCYTES # (AUTO) 0.5 K/uL (2.0-10.0); MONOCYTES % (AUTO) 8.6 % (0.0-11.0); NEUTROPHILS # (AUTO) 3.3 K/uL (1.8-8.9); PLATELET COUNT (AUTO) 224 K/uL (152-348); RED BLOOD CELL COUNT(AUTO) 4.62 MIL/uL (4.06-5.63); WHITE BLOOD COUNT (AUTO) 5.9 K/uL (3.6-10.2)
[2018-04-17 18:01] LABS: CARBON DIOXIDE 26 mmol/L (21-32); CHLORIDE 104 mmol/L (98-107); CREATININE 0.6 mg/dL (0.6-1.3); GLUCOSE 99 mg/dL (74-106); POTASSIUM 3.9 mmol/L (3.5-5.1); UREA NITROGEN, BLOOD 12 mg/dL (7-18)
[2018-04-17 18:25] LABS: PHENOBARBITAL 40.2 ug/mL (15.0-39.0)
[2018-04-17] MEDS ORDERED: LACT-215 PO (19:35)
[2018-04-17] MEDS ORDERED: MENT71OI TP (19:35)
[2018-04-17] MEDS ORDERED: PHEN15TA18 PO ×2 (19:35)
[2018-04-17] MEDS ORDERED: ASCO500T9 PO (19:35)
[2018-04-17 21:17] VITALS: BP 112/65
[2018-04-17] MEDS ORDERED: HYDROCODONE/APAP 5-325MG TABLET PO PRN ×2 (21:30→21:37)
[2018-04-17] MEDS ORDERED: ACETAMINOPHEN 325 MG TABLET PO PRN ×2 (21:30→21:37)
[2018-04-17] MEDS ORDERED: Z GUARD REMEDY PASTE 57 GM TUBE TOP PRN (21:30)
[2018-04-17] MEDS ORDERED: LORAZEPAM 2 MG/1 ML VIAL IV PRN ×2 (21:30→21:38)
[2018-04-17] MEDS ORDERED: MAGNESIUM HYDROXIDE 30 ML LIQUID UDC PO PRN ×2 (21:30→21:38)
[2018-04-17] MEDS ORDERED: ONDANSETRON 4 MG/2 ML VIAL IV PRN (21:30)
[2018-04-17] MEDS ORDERED: IV NS 1000 ML 1,000 ML IV PRN (22:00)
[2018-04-17] MEDS ORDERED: LAMOTRIGINE 100 MG TABLET PO ONE (23:00)
[2018-04-17] MEDS ORDERED: LEVETIRACETAM 500 MG TABLET PO ONE (23:00)
[2018-04-17] MEDS ORDERED: TOPIRAMATE 100 MG TABLET PO ONE (23:00)
[2018-04-18 00:43] VITALS: BP 126/93
[2018-04-18 04:00] VITALS: BP 107/73
[2018-04-18 06:45] LABS: BASOPHILS # (AUTO) 0.1 K/uL (0.0-8.0); BASOPHILS % (AUTO) 1.2 % (0.0-2.0); EOSINOPHILS # (AUTO) 0.1 K/uL (0.0-0.7); EOSINOPHILS % (AUTO) 2.1 % (0.0-7.0); HEMATOCRIT 39.6 % (36.7-47.1); HEMOGLOBIN 13.8 g/dL (12.5-16.3); LYMPHOCYTES # (AUTO) 1.9 K/uL (20.0-40.0); LYMPHOCYTES % (AUTO) 31.5 % (20.5-51.5); MEAN CORPUSCULAR HEMOGLOBIN 31.5 uug (23.8-33.4); MEAN CORPUSCULAR HGB CONC 35 g/dL (32.5-36.3); MEAN CORPUSCULAR VOLUME 90.1 fL (73.0-96.2); MONOCYTES # (AUTO) 0.4 K/uL (2.0-10.0); MONOCYTES % (AUTO) 7.3 % (0.0-11.0); NEUTROPHILS # (AUTO) 3.4 K/uL (1.8-8.9); NEUTROPHILS % (AUTO) 57.9 % (38.5-71.5); PLATELET COUNT (AUTO) 191 K/uL (152-348); WHITE BLOOD COUNT (AUTO) 5.9 K/uL (3.6-10.2)
[2018-04-18 07:06] LABS: ALANINE AMINOTRANSFERASE 26 U/L (16-63); ALKALINE PHOSPHATASE 149 U/L (50-136); ASPARTATE AMINOTRANSFERASE 14 U/L (15-37); BILIRUBIN,TOTAL 0.2 mg/dL (0.2-1.0); CARBON DIOXIDE 23 mmol/L (21-32); CHLORIDE 106 mmol/L (98-107); CHOLESTEROL 229 mg/dL (<200); CREATININE 0.5 mg/dL (0.6-1.3); GLUCOSE 84 mg/dL (74-106); HDL CHOLESTEROL 71 mg/dL (40-60); MAGNESIUM 1.7 mg/dL (1.8-2.4); PHOSPHOROUS 3.8 mg/dL (2.5-4.9); POTASSIUM 3.4 mmol/L (3.5-5.1); TOTAL PROTEIN, SERUM 7.5 g/dL (6.4-8.2); TRIGLYCERIDES 71 MG/DL (30-150); UREA NITROGEN, BLOOD 11 mg/dL (7-18)
[2018-04-18 11:07] VITALS: BP 113/80
[2018-04-18] MEDS ORDERED: MAGNESIUM SULFATE/D5W 100 ML IV SCH (11:30)
[2018-04-18] MEDS ORDERED: POTASSIUM CHLORIDE 20 MEQ POWDER PACKET PO ONE (11:30)
[2018-04-18] MEDS ORDERED: ATOR10TA PO (13:08)
[2018-04-18] MEDS ORDERED: PHENOBARBITAL 32.4 MG TABLET PO ONE (13:08)
[2018-04-18] MEDS ORDERED: ATORVASTATIN 10 MG TABLET PO SCH (21:00)
== END 2018-04-18 13:30 | disposition home or self-care (01) | DRG 101 ==
LOC: ER 17:16 → TELE 20:34
PROVIDERS: ADMIT Internal Medicine; ATTEND Internal Medicine
DX: G40.812 Lennox-Gastaut syndrome, not intractable, without status epilepticus (principal); F72 Severe intellectual disabilities; F84.0 Autistic disorder; E87.6 Hypokalemia; E83.42 Hypomagnesemia; E78.5 Hyperlipidemia, unspecified; Z79.899 Other long term (current) drug therapy; Z87.81 Personal history of (healed) traumatic fracture; Z91.81 History of falling
CPT/HCPCS: 36415; 71045; 80184; 83735; 84100; 85025; 93005; A4663; G0378; J1953; J2060; J3475; J7030; J7060

== ENCOUNTER 2018-07-29 19:26 | Inpatient (IN) | payer MEDICARE, OTHER ==
[~2018-07-29] VITALS: Ht 182.9 cm; Wt 79.4 kg
[~2018-07-29 19:26] MED LIST changes: -ASCO500C18 GT; +ASCO500T9 PO; +ATOR10TA PO; -CHOL10002 GT; -CLON0.3T GT; -CLON0.3T PO; -DOCU100C36 GT; +LACT-215 PO; -LACT-47 GT; -LEVE500T9 GT; -LEVO330T PO; -LEVO330T2 GT; -MAGN296S PO; -MELA5TAB GT; -MULT1TAB73 GT; -NAPR220C15 PO; -ONDA4TAB5 GT; -PANT40SU2 PO; -PHEN-563 GT; +PHEN15TA18 PO; -PHEN20EL5 PO; -POLY255P2 GT; -POTA10TA15 GT; -TOPI100T38 GT; -ZINC220C8 GT
--- NOTE | 2018-07-29 19:40 | NUR ---
Patient's mother keeps repeating the words,"This is not my first rodeo." Patient is awake, calm, intermittently follows command. Private caregiver is at bedside as well.
--- NOTE | 2018-07-29 20:01 | NUR ---
Dr Francis is at bedside evaluating the patient.
--- NOTE | 2018-07-29 20:18 | NUR ---
Patient was seen ambulating to bathroom with slow steady gait with one person assist.
[2018-07-29 20:37] LABS: BASOPHILS % (AUTO) 0.6 % (0.0-2.0); EOSINOPHILS # (AUTO) 0.1 K/uL (0.0-0.7); EOSINOPHILS % (AUTO) 1.5 % (0.0-7.0); HEMATOCRIT 41.4 % (36.7-47.1); HEMOGLOBIN 14.4 g/dL (12.5-16.3); LYMPHOCYTES # (AUTO) 1.5 K/uL (20.0-40.0); LYMPHOCYTES % (AUTO) 27.6 % (20.5-51.5); MEAN CORPUSCULAR HEMOGLOBIN 30.4 uug (23.8-33.4); MEAN CORPUSCULAR HGB CONC 35 g/dL (32.5-36.3); MEAN CORPUSCULAR VOLUME 87.5 fL (73.0-96.2); MONOCYTES # (AUTO) 0.4 K/uL (2.0-10.0); MONOCYTES % (AUTO) 8.1 % (0.0-11.0); NEUTROPHILS # (AUTO) 3.4 K/uL (1.8-8.9); NEUTROPHILS % (AUTO) 62.2 % (38.5-71.5); PLATELET COUNT (AUTO) 238 K/uL (152-348); RED BLOOD CELL COUNT(AUTO) 4.73 MIL/uL (4.06-5.63); WHITE BLOOD COUNT (AUTO) 5.5 K/uL (3.6-10.2)
[2018-07-29 20:44] LABS: CARBON DIOXIDE 22 mmol/L (21-32); CHLORIDE 106 mmol/L (98-107); CREATININE 0.6 mg/dL (0.6-1.3); GLUCOSE 107 mg/dL (74-106); POTASSIUM 3.7 mmol/L (3.5-5.1); UREA NITROGEN, BLOOD 8 mg/dL (7-18)
--- NOTE | 2018-07-29 20:49 | NUR ---
Patient is more interactive with mother at this time. Patient ambulated to bathroom 2 more times with one person assist, no seizure activity seen since arriving in our ER.
[2018-07-29 20:50] LABS: ALANINE AMINOTRANSFERASE 25 U/L (16-63); ALKALINE PHOSPHATASE 230 U/L (50-136); ASPARTATE AMINOTRANSFERASE 14 U/L (15-37); BILIRUBIN,DIRECT 0.1 mg/dL (0.0-0.2); BILIRUBIN,TOTAL 0.2 mg/dL (0.2-1.0); PHENOBARBITAL 24.3 ug/mL (15.0-39.0); TOTAL PROTEIN, SERUM 8.2 g/dL (6.4-8.2)
[2018-07-29 21:00] VITALS: BP 113/82
--- NOTE | 2018-07-29 21:15 | NUR ---
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 PT IS WITH 24 HR CAREGIVER. PER MOTHER PT HAS MORE FREQUENT SEIZURE THAT LASTED FOR 2 MINS THAT IS WHY MOTHER OPTED TO BRING PT TO ER. PT ANSWER MOTHER FEW QUESTIONS, INCOMPREHENSIBLE WORDS. EATING REGULAR FOOD VERY GOOD WHEN FED BY MOTHER. THICKENED LIQUIDS JUST FOR SAFETY.VSS,AFEBRILE, WILL CONTINUE TO MONITOR, SINUS RHYTHM 80'S ON MONITOR.
[2018-07-29 21:39] VITALS: BP 113/82
[2018-07-29] MEDS ORDERED: TOPI100T38 PO (22:18)
[2018-07-29] MEDS ORDERED: ONDANSETRON 4 MG/2 ML VIAL IV PRN (23:15)
[2018-07-29] MEDS ORDERED: Z GUARD REMEDY PASTE 57 GM TUBE TOP PRN (23:15)
[2018-07-29] MEDS ORDERED: ACETAMINOPHEN ES 500 MG TABLET PO PRN (23:15)
[2018-07-29] MEDS ORDERED: HYDROCODONE/APAP 5-325MG TABLET PO PRN (23:15)
[2018-07-29] MEDS ORDERED: PHENOBARBITAL 32.4 MG TABLET PO SCH (23:15)
[2018-07-29] MEDS ORDERED: MAGNESIUM HYDROXIDE 30 ML LIQUID UDC PO PRN (23:15)
[2018-07-29] MEDS ORDERED: LAMOTRIGINE 100 MG TABLET PO SCH (23:15)
[2018-07-29] MEDS: ATORVASTATIN 10 MG TABLET PO SCH (23:15)
[2018-07-29] MEDS: TOPIRAMATE 100 MG TABLET PO SCH (23:15)
[2018-07-29] MEDS ORDERED: ZOLPIDEM 5 MG TABLET PO PRN (23:15)
[2018-07-29] MEDS ORDERED: MELATONIN 3 MG TABLET PO PRN (23:15)
[2018-07-29] MEDS ORDERED: ACETAMINOPHEN 325 MG TABLET PO PRN (23:15)
[2018-07-30] VITALS (7 sets, daily range): BP systolic 106–147; BP diastolic 76–98
--- NOTE | 2018-07-30 00:25 | NUR ---
PT HAD EPISODE WITH SEIZURE, CAREGIVER CALLED THAT PT STARTING SEIZING. TONIC CLONIC SEIZURE FROM [id number] LASTED AROUND 2 MINUTES NOTED ON THE MONITOR,THEN RETURN TO NORMAL AND STARTED GIGGLING. BP 147/98 HR 90 SPO2 97%. DIDN'T HURT HIMSELF DURING THE EPISODE, SIDERAILS WERE PADDED WITH PILLOWS AND SUPPORTED THE HEAD WHILE SHAKING, MINIMAL SALIVA WHEN SUCTIONED. WILL CONTINUE TO MONITOR, WILL NOTIFY .
[2018-07-30] MEDS ORDERED: LORAZEPAM 2 MG/1 ML VIAL IV PRN (03:00)
--- NOTE | 2018-07-30 06:24 | NUR ---
NO VOID OVERNIGHT, BLADDER SCAN ONLY [id number]. WILL CONTINUE TO MONITOR, PT RESTING IN BED RELAXED AND COVERED UP WITH BLANKET WILL CONTINUE TO MONITOR.
[2018-07-30] MEDS ORDERED: ZOLPIDEM 5 MG TABLET PO PRN (07:15)
[2018-07-30 07:17] LABS: ALANINE AMINOTRANSFERASE 19 U/L (16-63); ALKALINE PHOSPHATASE 202 U/L (50-136); ASPARTATE AMINOTRANSFERASE 14 U/L (15-37); BILIRUBIN,TOTAL 0.2 mg/dL (0.2-1.0); CARBON DIOXIDE 23 mmol/L (21-32); CHLORIDE 103 mmol/L (98-107); CHOLESTEROL 189 mg/dL (<200); CREATININE 0.6 mg/dL (0.6-1.3); GLUCOSE 89 mg/dL (74-106); HDL CHOLESTEROL 52 mg/dL (40-60); MAGNESIUM 1.7 mg/dL (1.8-2.4); PHOSPHOROUS 4.4 mg/dL (2.5-4.9); POTASSIUM 3.3 mmol/L (3.5-5.1); TOTAL PROTEIN, SERUM 7.3 g/dL (6.4-8.2); TRIGLYCERIDES 97 MG/DL (30-150); UREA NITROGEN, BLOOD 10 mg/dL (7-18)
[2018-07-30 07:27] LABS: BASOPHILS % (AUTO) 0.5 % (0.0-2.0); EOSINOPHILS # (AUTO) 0.1 K/uL (0.0-0.7); EOSINOPHILS % (AUTO) 0.8 % (0.0-7.0); HEMATOCRIT 39.2 % (36.7-47.1); HEMOGLOBIN 13.7 g/dL (12.5-16.3); LYMPHOCYTES # (AUTO) 2.2 K/uL (20.0-40.0); LYMPHOCYTES % (AUTO) 25.4 % (20.5-51.5); MEAN CORPUSCULAR HEMOGLOBIN 30.6 uug (23.8-33.4); MEAN CORPUSCULAR HGB CONC 35 g/dL (32.5-36.3); MEAN CORPUSCULAR VOLUME 87.3 fL (73.0-96.2); MONOCYTES # (AUTO) 0.7 K/uL (2.0-10.0); MONOCYTES % (AUTO) 7.8 % (0.0-11.0); NEUTROPHILS # (AUTO) 5.6 K/uL (1.8-8.9); NEUTROPHILS % (AUTO) 65.5 % (38.5-71.5); PLATELET COUNT (AUTO) 243 K/uL (152-348); RED BLOOD CELL COUNT(AUTO) 4.49 MIL/uL (4.06-5.63); WHITE BLOOD COUNT (AUTO) 8.6 K/uL (3.6-10.2)
[2018-07-30] MEDS ORDERED: PHENOBARBITAL 32.4 MG TABLET PO SCH (09:00)
[2018-07-30] MEDS: LEVETIRACETAM 500 MG TABLET PO SCH ×2 (09:17→20:19)
[2018-07-30] MEDS: ZINC SULFATE 220 MG CAPSULE PO SCH (09:17)
[2018-07-30] MEDS: ASCORBIC ACID 500 MG TABLET PO SCH (09:18)
[2018-07-30] MEDS: CHOLECALCIFEROL 1,000 UNIT TABLET PO SCH (09:18)
[2018-07-30] MEDS: LAMOTRIGINE 100 MG TABLET PO SCH (09:18)
[2018-07-30] MEDS: MIRALAX 17 GM POWD.PACK PO SCH ×2 (09:19→16:58)
[2018-07-30] MEDS: PHENOBARBITAL 100 MG PO SCH ×2 (10:22→17:34)
[2018-07-30] MEDS: PHENOBARBITAL 15 MG PO SCH ×2 (10:23→17:34)
[2018-07-30] MEDS ORDERED: POTASSIUM CHLORIDE 20 MEQ TAB.PRT.SR PO ONE (11:30)
[2018-07-30] MEDS: MAGNESIUM SULFATE/D5W 100 ML IV SCH ×2 (11:38→12:59)
[2018-07-30] MEDS ORDERED: LAMOTRIGINE 100 MG TABLET PO SCH (18:00)
--- NOTE | 2018-07-30 18:34 | NUR ---
Patient has been in bed with caregiver and mother at bedside. patient is not able to verbalize needs. Mother is at bedside to help with communication. Safety seizure precautions have been placed for the patient. Patient did not have a seizure during the shift. Patient is compliant with medication administration and medical regimen. Patient was able to void today after bladder scan. Patient is able to void when oriented to the restroom. Will continue to monitor and endorse plan of care to welder 2nd shift nurse.
--- NOTE | 2018-07-30 19:48 | NUR ---
RECEIVED PATIENT IN BED AWAKE BUT UNABLE TO MAKE NEEDS KNOWN, MOTHER AT BEDSIDE PARTICIPATE WITH THE CARE, PATIENT IN TELE MONITOR SINUS RHYTHM AT THIS TIME, NO EPISODES OF SEIZURES SO FAR. PADDED SIDE RAILS WAS IN PLACE, CONT ON 1;1 SITTER PROVIDED BY MOTHER FOR SAFETY, KEPT CLEAN AND DRY.
[2018-07-30] MEDS: ATORVASTATIN 10 MG TABLET PO SCH (20:19)
[2018-07-30] MEDS: TOPIRAMATE 100 MG TABLET PO SCH (20:22)
--- NOTE | 2018-07-30 23:00 | NUR ---
PATIENT IN BED SLEEPING INTERMITTENTLY, NO S/S OF DISCOMFORT, NO RESTLESSNESS NOTED AT THIS TIME. PATIENT CALM, TRYING TO GET SOME SLEEP. SITTER AT BEDSIDE, NO EPISODES OF SEIZURE ACTIVITY AT THIS TIME. CONT TO MONITOR.
[2018-07-31 00:53] VITALS: BP 140/98
--- NOTE | 2018-07-31 05:52 | NUR ---
PATIENT AWAKE, NO SOB NO CHEST PAIN NOTED, PATIENT PULLED OUT IV ON LEFT HAND WITH NO BLEEDING NOTED, PATIENT QUIET, NO EPISODES OF SEIZURE ACTIVITY NOTED, KEPT CLEAN AND DRY.
[2018-07-31 05:58] VITALS: BP 101/71
[2018-07-31 07:38] LABS: CARBON DIOXIDE 27 mmol/L (21-32); CHLORIDE 103 mmol/L (98-107); CREATININE 0.6 mg/dL (0.6-1.3); GLUCOSE 88 mg/dL (74-106); POTASSIUM 3.9 mmol/L (3.5-5.1); UREA NITROGEN, BLOOD 9 mg/dL (7-18)
[2018-07-31] MEDS: LEVETIRACETAM 500 MG TABLET PO SCH (09:26)
[2018-07-31] MEDS: LAMOTRIGINE 100 MG TABLET PO SCH (09:26)
[2018-07-31] MEDS: PHENOBARBITAL 15 MG PO SCH (09:27)
[2018-07-31] MEDS: ZINC SULFATE 220 MG CAPSULE PO SCH (09:27)
[2018-07-31] MEDS: CHOLECALCIFEROL 1,000 UNIT TABLET PO SCH (09:27)
[2018-07-31] MEDS: MIRALAX 17 GM POWD.PACK PO SCH (09:27)
[2018-07-31] MEDS: ASCORBIC ACID 500 MG TABLET PO SCH (09:27)
[2018-07-31] MEDS: PHENOBARBITAL 100 MG PO SCH (09:27)
[2018-07-31 11:36] VITALS: BP 103/61
[2018-07-31 13:46] LABS: *BILIRUBIN,URIN NEGATIVE (NEGATIVE); *BLOOD, URINE NEGATIVE (NEGATIVE); *CLARITY,URINE CLEAR (CLEAR); *COLOR,URINE YELLOW (YELLOW); *KETONES,URINE NEGATIVE (NEGATIVE); *UROBILINOGEN,URINE 0.2 E.U./dl (NORMAL); LEUKOCYTE ESTERASE ,URINE NEGATIVE (NEGATIVE); NITRITE, URINE NEGATIVE (NEGATIVE); UGLUCOSE NEGATIVE (NEGATIVE)
[2018-07-31 14:21] LABS: RBC,URINE 0-3 /HPF (0-3); WBC,URINE 0-3 /HPF (0-3)
[2018-07-31 14:22] LABS: BACTERIA,URINE NONE SEEN /HPF (NONE SEEN); SQUAMOUS EPITHELIAL CELL,UR FEW /HPF (NONE SEEN)
--- NOTE | 2018-07-31 14:43 | NUR ---
URINALYSIS CAME BACK NEGATIVE. PER PATIENT IS READY FOR DISCHARGE OK TO FINALIZE ORDERS AND DISCHARGE.
--- NOTE | 2018-07-31 15:25 | NUR ---
PATIENT LEFT THE FLOOR ACCOMPANIED BY CAREGIVER AND MOTHER. PATIENT STABLE. TAKEN HOME VIA PRIVATE CAR, DISCHARGE INSTRUCTIONS PROVIDED. WRISTBAND REMOVED AND IV ACCESS REMOVED WELL.
[2018-08-12] MEDS ORDERED: PHEN15TA18 PO (15:45)
== END 2018-07-31 15:25 | disposition home or self-care (01) | DRG 101 ==
LOC: ER 19:28 → TELE 20:40 → MED 07-31 11:37
PROVIDERS: ADMIT Internal Medicine; ATTEND Internal Medicine
DX: G40.812 Lennox-Gastaut syndrome, not intractable, without status epilepticus (principal); F84.0 Autistic disorder; F79 Unspecified intellectual disabilities; E83.42 Hypomagnesemia; E78.5 Hyperlipidemia, unspecified; E87.6 Hypokalemia; Z87.81 Personal history of (healed) traumatic fracture
CPT/HCPCS: 36415; 71045; 80184; 83735; 84100; 85025; 85730; 93005; A4663; G0378; J3475; J7050

== ENCOUNTER 2018-08-10 19:01 | Inpatient (IN) | payer MEDICARE, OTHER ==
[~2018-08-10] VITALS: Ht 182.9 cm; Wt 80.3 kg
[~2018-08-10 19:01] MED LIST changes: -LACT-215 PO; -MENT71OI TP; +TOPI100T38 PO; -TOPI200T PO
--- NOTE | 2018-08-10 19:21 | NUR ---
Patient walked in accompanied by caregiver. Patient non verbal. Patient responds to verbal, tactile stimuli. Patient came c/o seizures which was endorsed by caregiver. Caregiver reported that the patient has had 6 seizures just today alone and which is unusual. No SOB, no cough, breathing even and unlabored. No cardiovascular distress noted, all pulses palpable. No GI/ distress. Seizure precautions implemented per protocol, bed in lowest position, siderails up x2. Mother and caregiver at bedside.
--- NOTE | 2018-08-10 19:25 | NUR ---
Dr. Tito CALABRESE MD at bedside to evaluate pt.
--- NOTE | 2018-08-10 19:45 | NUR ---
[facility] transfer center called per ER request to speak with Neurologist on-call.
--- NOTE | 2018-08-10 19:49 | NUR ---
Spoke with Kirk CAUSEY, awaiting call back from Neurologist.
[2018-08-10] MEDS ORDERED: LORAZEPAM 2 MG/1 ML VIAL ONE (19:55)
[2018-08-10 19:56] LABS: BASOPHILS # (AUTO) 0.1 K/uL (0.0-8.0); EOSINOPHILS # (AUTO) 0.1 K/uL (0.0-0.7); EOSINOPHILS % (AUTO) 1.4 % (0.0-7.0); HEMATOCRIT 38.3 % (36.7-47.1); HEMOGLOBIN 13.5 g/dL (12.5-16.3); LYMPHOCYTES # (AUTO) 1.8 K/uL (20.0-40.0); LYMPHOCYTES % (AUTO) 31.8 % (20.5-51.5); MEAN CORPUSCULAR HEMOGLOBIN 30.9 uug (23.8-33.4); MEAN CORPUSCULAR HGB CONC 35 g/dL (32.5-36.3); MEAN CORPUSCULAR VOLUME 87.3 fL (73.0-96.2); MONOCYTES # (AUTO) 0.4 K/uL (2.0-10.0); MONOCYTES % (AUTO) 7.6 % (0.0-11.0); NEUTROPHILS # (AUTO) 3.3 K/uL (1.8-8.9); NEUTROPHILS % (AUTO) 58.2 % (38.5-71.5); PLATELET COUNT (AUTO) 223 K/uL (152-348); RED BLOOD CELL COUNT(AUTO) 4.39 MIL/uL (4.06-5.63); WHITE BLOOD COUNT (AUTO) 5.6 K/uL (3.6-10.2)
[2018-08-10] MEDS ORDERED: LORAZEPAM 2 MG/1 ML VIAL IV ONE (20:00)
[2018-08-10 20:04] LABS: CARBON DIOXIDE 20 mmol/L (21-32); CHLORIDE 106 mmol/L (98-107); CREATININE 0.6 mg/dL (0.6-1.3); GLUCOSE 122 mg/dL (74-106); POTASSIUM 3.4 mmol/L (3.5-5.1); UREA NITROGEN, BLOOD 11 mg/dL (7-18)
[2018-08-10 20:14] LABS: MAGNESIUM 1.8 mg/dL (1.8-2.4); PHENOBARBITAL 32.1 ug/mL (15.0-39.0); PHOSPHOROUS 2.8 mg/dL (2.5-4.9)
[2018-08-10 20:18] LABS: ALANINE AMINOTRANSFERASE 21 U/L (16-63); ALKALINE PHOSPHATASE 169 U/L (50-136); ASPARTATE AMINOTRANSFERASE 11 U/L (15-37); BILIRUBIN,DIRECT 0.1 mg/dL (0.0-0.2); BILIRUBIN,TOTAL 0.2 mg/dL (0.2-1.0); TOTAL PROTEIN, SERUM 7.6 g/dL (6.4-8.2)
--- NOTE | 2018-08-10 20:24 | NUR ---
Called Jonas from [facility] transfer center to request for tele bed. There are no beds available at this time. Per BHARATI AGUILAR, will admit here to [facility].
--- NOTE | 2018-08-10 20:28 | NUR ---
[facility] paged for panel call.
[2018-08-10] MEDS ORDERED: MAGNESIUM SULFATE/D5W 100 ML IV SCH (20:30)
[2018-08-10] MEDS ORDERED: MAGNESIUM SULFATE/D5W 100 ML ONE (20:31)
--- NOTE | 2018-08-10 20:53 | NUR ---
Second call to [facility]
--- NOTE | 2018-08-10 21:12 | NUR ---
Pt. admitted to [facility], under care of Boy Posada DNP. Diagnosis: Seizures. Belongs List completed. MRSA swab done. Report given to floor nurse.
--- NOTE | 2018-08-10 21:20 | NUR ---
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 Patient awake, mainly non-verbal, make garbled sound. In no acute distress. No signs of pain or SOB. Some anxiety/restlessness noted./ Mother and private caregiver at bedside. NSR on tele at 78/min. Seizure precaution observed. Routine admission care done. Plan of care initiated. Safety measure initiated. Continue to monitor.
[2018-08-10 21:36] VITALS: BP 118/76
[2018-08-10] MEDS ORDERED: MELATONIN 3 MG TABLET PO PRN (21:45)
[2018-08-10] MEDS ORDERED: ONDANSETRON 4 MG/2 ML VIAL IV PRN (22:00)
[2018-08-10] MEDS ORDERED: PHENOBARBITAL 30 MG/7.5 ML LIQUID UDC PO SCH (22:00)
[2018-08-10] MEDS ORDERED: LORAZEPAM 2 MG/1 ML VIAL IV PRN ×2 (22:00)
[2018-08-10] MEDS ORDERED: ACETAMINOPHEN 325 MG TABLET PO PRN (22:00)
--- NOTE | 2018-08-10 22:50 | NUR ---
Patient IV was got pulled out. Started new IV line on right FA #22gauge. Received order from Swetha Morales due to danger on harming self, confusion and anxiety.
--- NOTE | 2018-08-11 | NUR ---
OKAY PER Yaa ZENDEJAS TO ADMINISTER PATIENT OWN HOME MEDICATION OF PHENOBARBITAL 230MG AND TOPIRAMATE 200MG AT 0000 DUE TO MEDICATION UNAVAILABLE AT THIS TIME.
[2018-08-11] MEDS ORDERED: PHENOBARBITAL 100 MG PO ONE (00:15)
[2018-08-11] MEDS ORDERED: PHENOBARBITAL 15 MG PO ONE (00:30)
[2018-08-11] MEDS ORDERED: EPIDIOLEX PO (00:41)
[2018-08-11] MEDS ORDERED: LEVETIRACETAM 500 MG TABLET PO ONE (00:45)
[2018-08-11] MEDS ORDERED: LAMOTRIGINE 100 MG TABLET PO ONE (01:00)
[2018-08-11 04:00] VITALS: BP 108/67
--- NOTE | 2018-08-11 05:19 | NUR ---
PATIENT SLEPT FOR FEW HOURS, NO COMPLAIN OF PAIN, GIVEN MELATONIN WITH SOME EFFECTIVENESS, NO SEIZURES EPISODES AT THIS TIME. CONT ON SITTER FOR SAFETY, KEPT CLEAN AND DRY, CALL LIGHT WITHIN REACH. Addendum: 08/12/18 at 05 by ROBIN GRIJALVA RN PATIENT SLEPT FOR FEW HOURS, NO COMPLAIN OF PAIN, GIVEN MELATONIN WITH SOME EFFECTIVENESS, NO SEIZURES EPSIODES AT THIS TIME CONT ; SITTER FOR SAFETY KEPT CLEAN AND DRY, CALL LIGHT WITHIN REACH. Addendum: 08/12/18 at 05 by ROBIN GRIJALVA RN PATIENT SLEPT FOR FEW HOURS, NO COMPLAIN OF PAIN, GIVEN MELATONIN WITH SOME EFFECTIVENESS, NO SEIZURES EPISODES AT THIS TIME, CONT ON SITTER FOR SAFETY, KEPT CLEAN AND DRY CALL LIGHT WITHIN REACH. CHARTING IN ERROR.
--- NOTE | 2018-08-11 06:27 | NUR ---
Patient asleep at this time. No seizure episode noted. In no acute distress. No signs of pain or SOB. NSR on tele at 76/min. Seizure precaution observed. IV site on right FA intact and patent. Hand mittens in place. Checked for circulation on hand/wrist area. Safety measure maintained. Private caregiver at bedside.
[2018-08-11 06:36] LABS: BASOPHILS # (AUTO) 0.1 K/uL (0.0-8.0); BASOPHILS % (AUTO) 0.8 % (0.0-2.0); EOSINOPHILS # (AUTO) 0.1 K/uL (0.0-0.7); HEMATOCRIT 38.6 % (36.7-47.1); HEMOGLOBIN 13.7 g/dL (12.5-16.3); LYMPHOCYTES # (AUTO) 2.2 K/uL (20.0-40.0); MEAN CORPUSCULAR HEMOGLOBIN 30.8 uug (23.8-33.4); MEAN CORPUSCULAR HGB CONC 35 g/dL (32.5-36.3); MONOCYTES # (AUTO) 0.5 K/uL (2.0-10.0); MONOCYTES % (AUTO) 8.1 % (0.0-11.0); NEUTROPHILS # (AUTO) 3.5 K/uL (1.8-8.9); NEUTROPHILS % (AUTO) 55.1 % (38.5-71.5); PLATELET COUNT (AUTO) 215 K/uL (152-348); RED BLOOD CELL COUNT(AUTO) 4.43 MIL/uL (4.06-5.63); WHITE BLOOD COUNT (AUTO) 6.3 K/uL (3.6-10.2)
[2018-08-11 06:43] LABS: ALANINE AMINOTRANSFERASE 17 U/L (16-63); ALKALINE PHOSPHATASE 169 U/L (50-136); ASPARTATE AMINOTRANSFERASE 14 U/L (15-37); BILIRUBIN,TOTAL 0.2 mg/dL (0.2-1.0); CARBON DIOXIDE 23 mmol/L (21-32); CHLORIDE 105 mmol/L (98-107); CHOLESTEROL 189 mg/dL (<200); CREATININE 0.6 mg/dL (0.6-1.3); GLUCOSE 87 mg/dL (74-106); HDL CHOLESTEROL 51 mg/dL (40-60); MAGNESIUM 1.9 mg/dL (1.8-2.4); PHOSPHOROUS 4.1 mg/dL (2.5-4.9); POTASSIUM 3.2 mmol/L (3.5-5.1); TOTAL PROTEIN, SERUM 7.5 g/dL (6.4-8.2); TRIGLYCERIDES 80 MG/DL (30-150); UREA NITROGEN, BLOOD 9 mg/dL (7-18)
--- NOTE | 2018-08-11 07:15 | NUR ---
patient remains with mittens on this am, patient attempts to remove lines and tele box, patient impaired insight and judgement due to mental status continue to educate and assess, no distress frequent skin checks
--- NOTE | 2018-08-11 07:30 | NUR ---
patient recvd sleeping in bed this am, no distress noted. Mother at bedside and caregiver, patient bed is in low position, side rails up x2, padded for seizure precautions. call light within reach.
[2018-08-11 07:43] LABS: THYROID STIMULATING HORMONE 2.729 mIU/mL (0.358-3.740)
--- NOTE | 2018-08-11 08:00 | NUR ---
patient remains NSR on Telemetry, HR 80 continue to monitor
[2018-08-11] MEDS ORDERED: PHENOBARBITAL 32.4 MG TABLET PO SCH ×3 (09:00→18:00)
[2018-08-11] MEDS ORDERED: PHENOBARBITAL 30 MG/7.5 ML LIQUID UDC PO SCH ×2 (09:00)
[2018-08-11] MEDS: LAMOTRIGINE 100 MG TABLET PO SCH ×2 (09:17→17:23)
[2018-08-11] MEDS: PHENOBARBITAL 15 MG PO SCH ×2 (09:18→21:24)
[2018-08-11] MEDS: POTASSIUM CHLORIDE 20 MEQ POWDER PACKET PO SCH ×2 (09:18→17:23)
[2018-08-11] MEDS: PHENOBARBITAL 100 MG PO SCH ×2 (09:18→21:25)
[2018-08-11] MEDS: MIRALAX 17 GM POWD.PACK PO SCH ×2 (09:18→17:23)
[2018-08-11] MEDS: LEVETIRACETAM 500 MG TABLET PO SCH ×2 (09:18→17:23)
[2018-08-11] MEDS: ZINC SULFATE 220 MG CAPSULE PO SCH (09:18)
[2018-08-11] MEDS: CHOLECALCIFEROL 1,000 UNIT TABLET PO SCH (09:19)
[2018-08-11] MEDS: TOPIRAMATE 100 MG TABLET PO SCH ×3 (09:19→17:23)
[2018-08-11] MEDS: ASCORBIC ACID 500 MG TABLET PO SCH (09:19)
--- NOTE | 2018-08-11 09:45 | NUR ---
patient assisted with toileting this am, large Bowel movement, patient ambulatory with assist, unsteady, pleasant and redirectable. patient compliant with am meds, care rendered, all needs attended to, questions and concerns addressed to family.
[2018-08-11] MEDS ORDERED: POTASSIUM CHLORIDE 20 MEQ POWDER PACKET PO ONE (10:30)
[2018-08-11 11:51] VITALS: BP 111/72
--- NOTE | 2018-08-11 12:32 | NUR ---
patient remains with caregiver at bedside, sitting up in semi-fowlers eating with total assist. no distress, continue to monitor meds given as ordered.
[2018-08-11 16:00] VITALS: BP 104/67
[2018-08-11] MEDS ORDERED: TOPIRAMATE 100 MG TABLET PO SCH (21:00)
[2018-08-11] MEDS: ATORVASTATIN 10 MG TABLET PO SCH (21:23)
[2018-08-11 21:33] VITALS: BP 100/60
[2018-08-12 05:29] VITALS: BP 92/62
[2018-08-12] MEDS: TOPIRAMATE 100 MG TABLET PO SCH ×2 (08:44→17:35)
[2018-08-12] MEDS: LEVETIRACETAM 500 MG TABLET PO SCH ×2 (08:44→17:35)
[2018-08-12] MEDS: LAMOTRIGINE 100 MG TABLET PO SCH ×2 (08:46→17:36)
[2018-08-12] MEDS: ASCORBIC ACID 500 MG TABLET PO SCH (08:46)
[2018-08-12] MEDS: ZINC SULFATE 220 MG CAPSULE PO SCH (08:46)
[2018-08-12] MEDS: CHOLECALCIFEROL 1,000 UNIT TABLET PO SCH (08:46)
[2018-08-12] MEDS: MIRALAX 17 GM POWD.PACK PO SCH ×2 (08:47→17:36)
[2018-08-12] MEDS: POTASSIUM CHLORIDE 20 MEQ POWDER PACKET PO SCH ×2 (08:47→17:36)
[2018-08-12] MEDS: PHENOBARBITAL 100 MG PO SCH ×2 (08:49→21:07)
[2018-08-12] MEDS: PHENOBARBITAL 15 MG PO SCH ×2 (08:49→21:07)
[2018-08-12 11:00] VITALS: BP 108/60
[2018-08-12 15:06] VITALS: BP 110/64
[2018-08-12] MEDS ORDERED: PHEN15TA18 PO (15:45)
--- NOTE | 2018-08-12 19:30 | NUR ---
RECEIVED PATIENT IN BED AWAKE, NO EPISODE OF SEIZURES NOTED AT THIS TIME. CONT ON 1;1 SITTER FOR SAFETY. CALL LIGHT WITHIN REACH.
[2018-08-12 20:19] VITALS: BP 100/68
[2018-08-12] MEDS: ATORVASTATIN 10 MG TABLET PO SCH (21:07)
--- NOTE | 2018-08-12 21:30 | NUR ---
PATIENT DISCHARGE HOME PLASTIC PARTS FABRICATOR TRIMMER BY MOTHER VIA PRIVATE CAR. GIVEN ALL PAPER WORKS AND TOOK ALL BELONGINGS. INSTRUCTED MOTHER TO COME IN THE MORNING TO PLASTIC PARTS FABRICATOR TRIMMER PATIENT MEDICATIONS FROM OUR PHARMACY. INSTRUCTED MOTHER THAT ITS IMPORTANT TO BRING HER RECEIPTS TO COLLECT HOME MEDS FROM PHARMACY.
== END 2018-08-12 21:45 | disposition home or self-care (01) | DRG 101 ==
LOC: ER 19:02 → UNDOADMIN 21:10 → MED 21:10 → TELE 21:14 → MED 08-11 13:15
PROVIDERS: ADMIT Nurse Practitioner Acute Care; ATTEND Nurse Practitioner Acute Care
DX: G40.812 Lennox-Gastaut syndrome, not intractable, without status epilepticus (principal); F84.0 Autistic disorder; F73 Profound intellectual disabilities; E87.6 Hypokalemia; Z79.899 Other long term (current) drug therapy; Z91.81 History of falling; Z87.81 Personal history of (healed) traumatic fracture; E78.5 Hyperlipidemia, unspecified
CPT/HCPCS: 36415; 80184; 80299; 83735; 84100; 84443; 85025; 93005; A4663; G0378; J2060; J3475

== ENCOUNTER 2018-12-10 12:02 | Inpatient (IN) | payer MEDICARE, OTHER ==
[~2018-12-10] VITALS: Ht 182.9 cm; Wt 80.4 kg
[~2018-12-10 12:02] MED LIST changes: +EPIDIOLEX PO
--- NOTE | 2018-12-10 12:23 | NUR ---
PT IS IN ROOM #2B. DR STONE EVALUATED THE PT.
[2018-12-10] MEDS ORDERED: PHENOBARBITAL 32.4 MG TABLET PO ONE (12:45)
[2018-12-10] MEDS ORDERED: IV NORMAL SALINE 1000 ML BAG IV ONE (12:45)
[2018-12-10] MEDS ORDERED: MAGN296S70 PO (13:09)
[2018-12-10 13:11] LABS: BASOPHILS % (AUTO) 0.8 % (0.0-2.0); EOSINOPHILS # (AUTO) 0.1 K/uL (0.0-0.7); EOSINOPHILS % (AUTO) 1.2 % (0.0-7.0); HEMATOCRIT 45.1 % (36.7-47.1); HEMOGLOBIN 15.2 g/dL (12.5-16.3); LYMPHOCYTES # (AUTO) 1.4 K/uL (20.0-40.0); LYMPHOCYTES % (AUTO) 26.1 % (20.5-51.5); MEAN CORPUSCULAR HEMOGLOBIN 29.4 uug (23.8-33.4); MEAN CORPUSCULAR HGB CONC 34 g/dL (32.5-36.3); MEAN CORPUSCULAR VOLUME 87.1 fL (73.0-96.2); MONOCYTES # (AUTO) 0.5 K/uL (2.0-10.0); MONOCYTES % (AUTO) 8.9 % (0.0-11.0); NEUTROPHILS # (AUTO) 3.5 K/uL (1.8-8.9); PLATELET COUNT (AUTO) 226 K/uL (152-348); RED BLOOD CELL COUNT(AUTO) 5.18 MIL/uL (4.06-5.63); WHITE BLOOD COUNT (AUTO) 5.5 K/uL (3.6-10.2)
[2018-12-10 13:17] LABS: CREATININE 0.7 mg/dL (0.6-1.3); POTASSIUM 3.9 mmol/L (3.5-5.1)
[2018-12-10 13:23] LABS: BILIRUBIN,DIRECT 0.1 mg/dL (0.0-0.2); BILIRUBIN,TOTAL 0.4 mg/dL (0.2-1.0); PHENOBARBITAL 21.8 ug/mL (15.0-39.0); TOTAL PROTEIN, SERUM 8.3 g/dL (6.4-8.2)
[2018-12-10] MEDS ORDERED: LORAZEPAM 2 MG/1 ML VIAL IV ONE (13:45)
[2018-12-10] MEDS ORDERED: LORAZEPAM 2 MG/1 ML VIAL ONE (14:10)
[2018-12-10] MEDS ORDERED: PHENOBARBITAL 32.4 MG TABLET ONE (14:11)
[2018-12-10] MEDS ORDERED: ACETAMINOPHEN 325 MG TABLET PO PRN (14:45)
[2018-12-10] MEDS ORDERED: HYDROCODONE/APAP 5-325MG TABLET PO PRN (14:45)
[2018-12-10] MEDS ORDERED: MAGNESIUM HYDROXIDE 30 ML LIQUID UDC PO PRN (14:45)
[2018-12-10] MEDS ORDERED: ONDANSETRON 4 MG/2 ML VIAL IV PRN (14:45)
[2018-12-10] MEDS ORDERED: Z GUARD REMEDY PASTE 57 GM TUBE TOP PRN (14:45)
--- NOTE | 2018-12-10 15:55 | NUR ---
REPORT GIVEN TO FRONT OFFICE DEVELOPER. PT WAS TRANSFERED TO ROOM #327.
[2018-12-10 16:15] VITALS: BP 127/73
--- NOTE | 2018-12-10 16:30 | NUR ---
RECEIVED PATIENT FROM ER. REPORT WAS GIVEN BY CINTHIA HOOD IN ER. PT. VS STABLE.
[2018-12-10] MEDS ORDERED: PHEN30TA40 PO (17:24)
--- NOTE | 2018-12-10 17:38 | NUR ---
Mother put patient on hospital chair that has rollers and spins. Discussed safety issues with mother about putting pt on that type of chair. this is not my first rodeo" stated by mother. Pt put back in bed by PLAYERS CLUB REPRESENTATIVE. Reinforce that if she wants the pt out of bed that we should use the wheelchair for safety. Notified nursing electronic maintenance supervisor of situation. Addendum: 12/10/18 at 1809 by SERGIO MCCARTHY RN pt has caregiver at bedside. Seizure pads applied on bed railings.
--- NOTE | 2018-12-10 19:45 | NUR ---
Received patient awake, lying in bed. Noted mother and caregiver present at bedside. Patient is on room air, tolerated. He has an IV access on the right forearm, noted with splint for support, IV fluid 1L NS started at 75mls/hr started as ordered. Patient able to ambulate but with unsteady gait. Will observe seizure precaution. Bed in low position, locked, side rails up for safety. Noise and lights subdued. Will continue to monitor.
--- NOTE | 2018-12-10 20:00 | NUR ---
Called and spoke with Dr. Fuentes regarding patient's medication since there is no active order for a seizure medication. MD made aware that day shift nurse has done the Med Recon - per MD he will review. Per MD, patient may resume regular diet while in the hospital.
[2018-12-10] MEDS: IV NS 1000 ML 1,000 ML IV PRN (20:01)
--- NOTE | 2018-12-10 20:01 | NUR ---
MED RECON COMPLETED. REPORT GIVEN TO ONCOMING NURSE.
[2018-12-10 20:09] VITALS: BP 110/74
[2018-12-10] MEDS ORDERED: MELA5TAB PO (21:17)
[2018-12-10] MEDS ORDERED: MELATONIN 20 MG PO SCH (21:45)
--- NOTE | 2018-12-10 22:00 | NUR ---
Per patient's mother's report patient has been taking Melatonin 20mg at home to help him sleep. Noted Dr. Fuentes ordered Melatonin 20mg tab po at bedtime as needed, however per pharmacist medicine is non formulary and is not available in the hospital. Per pharmacist no other issues regarding Melatonin aside from availability, no interactions with other medications. Noted patient's mother brought patient's home stock of Melatonin - will send to pharmacy.
[2018-12-10] MEDS ORDERED: [UNRECOGNIZED DRUG - OTHER] PO PRN (22:30)
[2018-12-10] MEDS: LAMOTRIGINE 100 MG TABLET PO SCH (22:30)
[2018-12-10] MEDS: LEVETIRACETAM 500 MG TABLET PO SCH (22:30)
[2018-12-10] MEDS: TOPIRAMATE 100 MG TABLET PO SCH (22:30)
[2018-12-10] MEDS ORDERED: MELATONIN 5 MG PO PRN (22:30)
[2018-12-10] MEDS: PHENOBARBITAL 32.4 MG TABLET PO SCH (22:37)
[2018-12-11 00:05] VITALS: BP 112/74
[2018-12-11 04:30] VITALS: BP 101/57
--- NOTE | 2018-12-11 05:50 | NUR ---
Patient slept well throughout the night. No seizures noted this shift, seizure precautions observed. No other untoward events noted. Still with ongoing IV fluid via IV access on the left forearm, 20g. Attended all needs. Ensured safety and comfort.
[2018-12-11 06:30] LABS: BASOPHILS % (AUTO) 0.8 % (0.0-2.0); EOSINOPHILS # (AUTO) 0.1 K/uL (0.0-0.7); EOSINOPHILS % (AUTO) 2.2 % (0.0-7.0); HEMATOCRIT 42.2 % (36.7-47.1); HEMOGLOBIN 14.2 g/dL (12.5-16.3); LYMPHOCYTES # (AUTO) 1.9 K/uL (20.0-40.0); MEAN CORPUSCULAR HEMOGLOBIN 29.3 uug (23.8-33.4); MEAN CORPUSCULAR HGB CONC 34 g/dL (32.5-36.3); MEAN CORPUSCULAR VOLUME 87.1 fL (73.0-96.2); MONOCYTES # (AUTO) 0.4 K/uL (2.0-10.0); MONOCYTES % (AUTO) 7.1 % (0.0-11.0); NEUTROPHILS # (AUTO) 3.3 K/uL (1.8-8.9); NEUTROPHILS % (AUTO) 56.9 % (38.5-71.5); PLATELET COUNT (AUTO) 215 K/uL (152-348); RED BLOOD CELL COUNT(AUTO) 4.85 MIL/uL (4.06-5.63); WHITE BLOOD COUNT (AUTO) 5.7 K/uL (3.6-10.2)
[2018-12-11 06:45] LABS: BILIRUBIN,TOTAL 0.2 mg/dL (0.2-1.0); CREATININE 0.7 mg/dL (0.6-1.3); MAGNESIUM 1.6 mg/dL (1.8-2.4); PHOSPHOROUS 5.2 mg/dL (2.5-4.9); POTASSIUM 3.6 mmol/L (3.5-5.1); TOTAL PROTEIN, SERUM 7.2 g/dL (6.4-8.2)
[2018-12-11 07:06] LABS: THYROID STIMULATING HORMONE 2.384 mIU/mL (0.358-3.740)
--- NOTE | 2018-12-11 07:30 | NUR ---
Patient is comfortable, mom at bed side, No seizures noted this am, seizure precautions observed and reinforced. ongoing IV fluid via IV access on the left forearm, 20g. Ensured safety and comfort.
[2018-12-11] MEDS: POTASSIUM CHLORIDE 20 MEQ TAB.PRT.SR PO SCH ×2 (09:00→17:21)
[2018-12-11] MEDS: CHOLECALCIFEROL 1,000 UNIT TABLET PO SCH (09:00)
[2018-12-11] MEDS: DOCUSATE SODIUM 100 MG CAPSULE PO SCH ×2 (09:00→17:22)
[2018-12-11] MEDS: ZINC SULFATE 220 MG CAPSULE PO SCH (09:00)
[2018-12-11] MEDS: PHENOBARBITAL 32.4 MG TABLET PO SCH ×2 (09:01→21:31)
[2018-12-11] MEDS: LAMOTRIGINE 100 MG TABLET PO SCH ×2 (09:01→21:31)
[2018-12-11] MEDS: LEVETIRACETAM 500 MG TABLET PO SCH ×2 (09:01→21:30)
[2018-12-11] MEDS: MIRALAX 17 GM POWD.PACK PO SCH ×2 (09:02→17:22)
[2018-12-11] MEDS: ASCORBIC ACID 500 MG TABLET PO SCH (09:02)
[2018-12-11] MEDS: MULTIVITAMINS,THERAPEUTIC TABLET PO SCH (09:02)
[2018-12-11] MEDS: EPIDIOLEX 100 MG/ML PO SCH ×2 (09:06→21:31)
[2018-12-11] MEDS: IV NS 1000 ML 1,000 ML IV PRN (09:13)
--- NOTE | 2018-12-11 09:17 | NUR ---
mom has been instructed about seizure precaution and fall risks, but still put patient on the chair, would not follow instructions of personal stuff safety reinforced again and explained risks and preventions
[2018-12-11] MEDS: MAGNESIUM SULFATE/D5W 100 ML IV SCH ×2 (10:14→11:24)
[2018-12-11 12:00] VITALS: BP 109/67
[2018-12-11 15:59] VITALS: BP 103/64
--- NOTE | 2018-12-11 19:07 | NUR ---
Patient is comfortable, mom at bed side, No seizures this shift, seizure precautions observed and reinforced. ongoing IV fluid via IV access on the left forearm, 20g. Maintained safety and comfort.
--- NOTE | 2018-12-11 19:20 | NUR ---
RECEIVED PT ON BED. MOTHER AND CAREGIVER AT BEDSIDE. SAFETY AND COMFORT PROVIDED. IV INTACT. PT IN NO ACUTE DISTRESS. WILL CONTINUE TO MONITOR.
[2018-12-11 20:03] VITALS: BP 110/74
[2018-12-11] MEDS: TOPIRAMATE 100 MG TABLET PO SCH (21:31)
[2018-12-12 00:05] VITALS: BP 121/80
[2018-12-12] MEDS: IV NS 1000 ML 1,000 ML IV PRN (01:11)
[2018-12-12 05:57] VITALS: BP 100/70
--- NOTE | 2018-12-12 06:08 | NUR ---
PT SLEPT THROUGHOUT THE SHIFT. PT SHOWS NO SIGNS OF ACUTE DISTRESS.CAREGIVER AT BEDSIDE. PRESCRIBED MEDICATION GIVEN AND PT TOLERATED IT WELL. SAFETY AND COMFORT PROVIDED. ALL NEEDS ARE MET. WILL ENDORSE ACCORDINGLY TO INCOMING NURSE FOR CONTINUITY OF CARE.
--- NOTE | 2018-12-12 06:31 | NUR ---
NO SEIZURE NOTED. SEIZURE PRECAUTION PROVIDED. PT URINATING WELL. PT IN NO ACUTE DISTRESS. SAFETY AND COMFORT PROVIDED. WILL ENDORSE TO INCOMING NURSE.
[2018-12-12 07:25] LABS: CARBON DIOXIDE 17 mmol/L (21-32); CHLORIDE 106 mmol/L (98-107); CREATININE 0.6 mg/dL (0.6-1.3); GLUCOSE 102 mg/dL (74-106); MAGNESIUM 1.8 mg/dL (1.8-2.4); POTASSIUM 3.9 mmol/L (3.5-5.1); UREA NITROGEN, BLOOD 12 mg/dL (7-18)
--- NOTE | 2018-12-12 07:52 | NUR ---
PATIENT IS COMFORTABLE IN BED, CAREGIVER AT BED SIDE, PT SHOWS NO SIGNS OF ACUTE DISTRESS. SAFETY AND COMFORT REINFORCED. CONT CARE AND MONITOR
[2018-12-12] MEDS: EPIDIOLEX 100 MG/ML PO SCH (08:15)
[2018-12-12] MEDS: ZINC SULFATE 220 MG CAPSULE PO SCH (08:15)
[2018-12-12] MEDS: LEVETIRACETAM 500 MG TABLET PO SCH (08:16)
[2018-12-12] MEDS: LAMOTRIGINE 100 MG TABLET PO SCH (08:17)
[2018-12-12] MEDS: DOCUSATE SODIUM 100 MG CAPSULE PO SCH (08:17)
[2018-12-12] MEDS: ASCORBIC ACID 500 MG TABLET PO SCH (08:17)
[2018-12-12] MEDS: POTASSIUM CHLORIDE 20 MEQ TAB.PRT.SR PO SCH (08:18)
[2018-12-12] MEDS: PHENOBARBITAL 32.4 MG TABLET PO SCH (08:18)
[2018-12-12] MEDS: MULTIVITAMINS,THERAPEUTIC TABLET PO SCH (08:18)
[2018-12-12] MEDS: MIRALAX 17 GM POWD.PACK PO SCH (08:18)
[2018-12-12] MEDS: CHOLECALCIFEROL 1,000 UNIT TABLET PO SCH (08:18)
[2018-12-12 11:29] VITALS: BP 115/70
[2018-12-12 15:28] VITALS: BP 107/61
--- NOTE | 2018-12-12 16:15 | NUR ---
PATIENT IS DISCHARGED WITH MOM AND CARE PROVIDER DISCHARGE COPIES ARE GIVEN AND TEACHING IS DONE. PATIENT WENT DOWN BY WHEEL CHAIR
== END 2018-12-12 16:15 | disposition home health service (06) | DRG 101 ==
LOC: ER 12:05 → TELE3 15:48
PROVIDERS: ADMIT Internal Medicine; ATTEND Internal Medicine
DX: G40.812 Lennox-Gastaut syndrome, not intractable, without status epilepticus (principal); F84.0 Autistic disorder; F73 Profound intellectual disabilities; G93.49 Other encephalopathy; Z09 Encounter for follow-up examination after completed treatment for conditions other than malignant neoplasm; Z93.1 Gastrostomy status; Z91.19 Patient's noncompliance with other medical treatment and regimen; E78.5 Hyperlipidemia, unspecified; Z87.81 Personal history of (healed) traumatic fracture; F09 Unspecified mental disorder due to known physiological condition; Z79.899 Other long term (current) drug therapy; E83.42 Hypomagnesemia; E87.8 Other disorders of electrolyte and fluid balance, not elsewhere classified; G93.9 Disorder of brain, unspecified; R40.2142 Coma scale, eyes open, spontaneous, at arrival to emergency department; R40.2352 Coma scale, best motor response, localizes pain, at arrival to emergency department; R40.2232 Coma scale, best verbal response, inappropriate words, at arrival to emergency department
CPT/HCPCS: 36415; 71045; 80184; 80299; 83735; 84100; 84443; 85025; A4663; G0378; J2060; J3475; J7030

== ENCOUNTER 2019-03-13 11:13 | Inpatient (IN) | payer MEDICARE, OTHER ==
[~2019-03-13] VITALS: Ht 182.9 cm; Wt 80.7 kg
[~2019-03-13 11:13] MED LIST changes: -ATOR10TA PO; +MAGN296S70 PO; -MELA3TAB PO; +MELA5TAB PO; +PHEN30TA40 PO; -POTA20LI4 PO; +POTA20LI5 PO
[2019-03-13] MEDS ORDERED: IV NORMAL SALINE 1000 ML BAG IV ONE (11:30)
[2019-03-13] MEDS ORDERED: ACETAMINOPHEN 160 MG/5 ML UDC PO ONE (11:30)
[2019-03-13] MEDS ORDERED: LORAZEPAM 2 MG/1 ML VIAL IV ONE (11:45)
[2019-03-13] MEDS ORDERED: PHEN-563 PO (11:46)
[2019-03-13] MEDS ORDERED: LORAZEPAM 2 MG/1 ML VIAL ONE (11:46)
[2019-03-13] MEDS ORDERED: ACETAMINOPHEN ES 500 MG TABLET ONE (11:46)
[2019-03-13 11:48] LABS: EOSINOPHILS # (AUTO) 0.1 K/uL (0.0-0.7); EOSINOPHILS % (AUTO) 0.6 % (0.0-7.0); MONOCYTES # (AUTO) 1.1 K/uL (2.0-10.0)
[2019-03-13 11:50] LABS: CARBON DIOXIDE 25 mmol/L (21-32); CHLORIDE 106 mmol/L (98-107); CREATININE 0.6 mg/dL (0.6-1.3); GLUCOSE 103 mg/dL (74-106); POTASSIUM 3.9 mmol/L (3.5-5.1); UREA NITROGEN, BLOOD 12 mg/dL (7-18)
[2019-03-13 11:52] LABS: BASOPHILS # (AUTO) 0.1 K/uL (0.0-8.0); MEAN CORPUSCULAR HGB CONC 34 g/dL (32.5-36.3)
[2019-03-13 11:53] LABS: HEMATOCRIT 45.9 % (36.7-47.1); HEMOGLOBIN 15.5 g/dL (12.5-16.3); MEAN CORPUSCULAR HEMOGLOBIN 29.7 uug (23.8-33.4); MEAN CORPUSCULAR VOLUME 88.3 fL (73.0-96.2); WHITE BLOOD COUNT (AUTO) 10.8 K/uL (3.6-10.2)
[2019-03-13 11:54] LABS: BASOPHILS % (AUTO) 0.4 % (0.0-2.0); LYMPHOCYTES # (AUTO) 1.2 K/uL (20.0-40.0); LYMPHOCYTES % (AUTO) 11.5 % (20.5-51.5); NEUTROPHILS # (AUTO) 8.4 K/uL (1.8-8.9); NEUTROPHILS % (AUTO) 77.5 % (38.5-71.5)
[2019-03-13 11:56] LABS: ALANINE AMINOTRANSFERASE 13 U/L (16-63); ALKALINE PHOSPHATASE 162 U/L (50-136); ASPARTATE AMINOTRANSFERASE 17 U/L (15-37); BILIRUBIN,DIRECT 0.1 mg/dL (0.0-0.2); BILIRUBIN,TOTAL 0.7 mg/dL (0.2-1.0); TOTAL PROTEIN, SERUM 8.3 g/dL (6.4-8.2)
[2019-03-13 12:03] LABS: PLATELET COUNT (AUTO) 147 K/uL (152-348)
[2019-03-13 12:54] LABS: *BILIRUBIN,URIN NEGATIVE (NEGATIVE); *BLOOD, URINE NEGATIVE (NEGATIVE); *CLARITY,URINE CLEAR (CLEAR); *COLOR,URINE DARK YELLOW (YELLOW); *KETONES,URINE NEGATIVE (NEGATIVE); *UROBILINOGEN,URINE 0.2 E.U./dl (NORMAL); LEUKOCYTE ESTERASE ,URINE NEGATIVE (NEGATIVE); NITRITE, URINE NEGATIVE (NEGATIVE); PH,URINE 5.5 (5.0-8.0); UGLUCOSE NEGATIVE (NEGATIVE)
[2019-03-13 13:27] LABS: BACTERIA,URINE FEW /HPF (NONE SEEN); RBC,URINE NONE SEEN /HPF (0-3); SQUAMOUS EPITHELIAL CELL,UR FEW /HPF (NONE SEEN); WBC,URINE NONE SEEN /HPF (0-3)
[2019-03-13 15:31] VITALS: BP 131/78
[2019-03-13] MEDS ORDERED: MELATONIN 20 MG PO SCH (17:30)
[2019-03-13] MEDS ORDERED: LORAZEPAM 2 MG/1 ML VIAL IV PRN (17:30)
[2019-03-13] MEDS ORDERED: ACETAMINOPHEN ES 500 MG TABLET PO PRN (17:30)
[2019-03-13] MEDS: IV 1/2NS 1000 ML 1,000 ML IV PRN (18:25)
[2019-03-13] MEDS ORDERED: TOPI200T PO (20:32)
[2019-03-13] MEDS: LAMOTRIGINE 100 MG TABLET PO SCH (20:42)
[2019-03-13] MEDS: DEXTROSE 5% IV SCH (21:00)
[2019-03-13] MEDS ORDERED: CANNABIDIOL PO SCH (21:00)
[2019-03-13] MEDS ORDERED: LEVETIRACETAM 500 MG TABLET PO SCH (21:00)
[2019-03-13] MEDS: LEVETIRACETAM IV SCH (21:00)
[2019-03-13] MEDS: TOPAMAX 200 MG PO SCH (21:53)
[2019-03-13 22:39] VITALS: BP 131/86
[2019-03-14 01:12] VITALS: BP 112/73
[2019-03-14 06:40] VITALS: BP 103/65
[2019-03-14] MEDS ORDERED: PANTOPRAZOLE SODIUM 40 MG TABLET.DR PO SCH (07:00)
[2019-03-14 07:03] LABS: BASOPHILS # (AUTO) 0.1 K/uL (0.0-8.0); BASOPHILS % (AUTO) 0.6 % (0.0-2.0); EOSINOPHILS # (AUTO) 0.3 K/uL (0.0-0.7); EOSINOPHILS % (AUTO) 2.9 % (0.0-7.0); HEMATOCRIT 40.9 % (36.7-47.1); HEMOGLOBIN 14.6 g/dL (12.5-16.3); LYMPHOCYTES # (AUTO) 1.3 K/uL (20.0-40.0); LYMPHOCYTES % (AUTO) 14.1 % (20.5-51.5); MEAN CORPUSCULAR HEMOGLOBIN 31.6 uug (23.8-33.4); MEAN CORPUSCULAR HGB CONC 36 g/dL (32.5-36.3); MEAN CORPUSCULAR VOLUME 88.3 fL (73.0-96.2); MONOCYTES # (AUTO) 0.9 K/uL (2.0-10.0); MONOCYTES % (AUTO) 10.2 % (0.0-11.0); NEUTROPHILS # (AUTO) 6.6 K/uL (1.8-8.9); NEUTROPHILS % (AUTO) 72.2 % (38.5-71.5); PLATELET COUNT (AUTO) 186 K/uL (152-348); RED BLOOD CELL COUNT(AUTO) 4.63 MIL/uL (4.06-5.63); WHITE BLOOD COUNT (AUTO) 9.1 K/uL (3.6-10.2)
[2019-03-14 07:34] LABS: ALANINE AMINOTRANSFERASE 15 U/L (16-63); ALKALINE PHOSPHATASE 146 U/L (50-136); ASPARTATE AMINOTRANSFERASE 16 U/L (15-37); BILIRUBIN,TOTAL 0.7 mg/dL (0.2-1.0); CARBON DIOXIDE 23 mmol/L (21-32); CHLORIDE 104 mmol/L (98-107); CREATININE 0.6 mg/dL (0.6-1.3); GLUCOSE 100 mg/dL (74-106); MAGNESIUM 1.8 mg/dL (1.8-2.4); PHOSPHOROUS 3.8 mg/dL (2.5-4.9); POTASSIUM 3.7 mmol/L (3.5-5.1); UREA NITROGEN, BLOOD 7 mg/dL (7-18)
[2019-03-14] MEDS ORDERED: Medication Not On Formulary EA (Multivitamins (Multivitamin) 1 EACH) PO SCH (09:00)
[2019-03-14] MEDS ORDERED: Medication Not On Formulary EA (Docusate Sodium 100 MG) PO SCH (09:00)
[2019-03-14] MEDS ORDERED: CHOLECALCIFEROL 1,000 UNIT TABLET PO SCH (09:00)
[2019-03-14] MEDS: MIRALAX 17 GM POWD.PACK PO SCH ×2 (09:00→17:00)
[2019-03-14] MEDS ORDERED: ZINC SULFATE 220 MG CAPSULE PO SCH (09:00)
[2019-03-14] MEDS ORDERED: PHENOBARBITAL PO SCH (09:00)
[2019-03-14] MEDS ORDERED: LAMOTRIGINE 100 MG TABLET PO SCH (09:00)
[2019-03-14] MEDS ORDERED: PHENOBARBITAL 100MG TABLET PO SCH (09:00)
[2019-03-14] MEDS ORDERED: ASCORBIC ACID 500 MG TABLET PO SCH (09:00)
[2019-03-14] MEDS ORDERED: MULTIVITAMINS,THERAPEUTIC TABLET PO SCH (09:00)
[2019-03-14] MEDS: IV 1/2NS 1000 ML 1,000 ML IV PRN (09:50)
[2019-03-14] MEDS: DEXTROSE 5% IV SCH ×2 (09:50→20:18)
[2019-03-14] MEDS: LEVETIRACETAM IV SCH ×2 (09:50→20:18)
[2019-03-14] MEDS: DOCUSATE SODIUM 100 MG CAPSULE PO SCH ×2 (09:59→17:15)
[2019-03-14] MEDS: TOPAMAX 200 MG PO SCH ×2 (10:00→20:17)
[2019-03-14] MEDS: EPIDIOLEX 100 MG/ML PO SCH ×2 (10:01→17:18)
[2019-03-14 11:34] VITALS: BP 100/60
[2019-03-14 15:16] VITALS: BP 134/65
[2019-03-14] MEDS ORDERED: GUAIFENESIN/DEXTROMETHORPHAN TAB.SR.12H PO SCH (17:00)
[2019-03-14] MEDS: LAMOTRIGINE 100 MG TABLET PO SCH (20:17)
[2019-03-15] MEDS ORDERED: GUAIFENESIN/DEXTROMETHORPHAN TAB.SR.12H PO SCH (09:00)
== END 2019-03-14 22:09 | disposition home or self-care (01) | DRG 101 ==
LOC: ER 11:13 → TELE3 14:40
PROVIDERS: ADMIT Internal Medicine; ATTEND Internal Medicine
DX: G40.812 Lennox-Gastaut syndrome, not intractable, without status epilepticus (principal); F84.0 Autistic disorder; F79 Unspecified intellectual disabilities; E83.42 Hypomagnesemia; E78.5 Hyperlipidemia, unspecified; Z87.81 Personal history of (healed) traumatic fracture; R50.9 Fever, unspecified; R00.0 Tachycardia, unspecified
CPT/HCPCS: 36415; 71045; 80184; 83605; 83735; 84100; 85025; 87040; 87086; 87400; 93005; A9150; C1758; G0378; J1953; J2060; J3490; J7030; J7060